=== PATIENT | male | born 1935 ===

== ENCOUNTER 2016-08-08 13:55 | Inpatient (IN) | payer MEDICARE, OTHER ==
[2016-08-08 13:55] VITALS: BMI 21.4
[2016-08-08] MEDS ORDERED: Iohexol 240 (50 ml) PO STA (15:19)
[2016-08-08] MEDS ORDERED: Iohexol 240 (50 ml) ONE (15:41)
--- NOTE | 2016-08-08 15:48 | C.PDOC ---
History Of Present Illness <Ashley Bland - Last Filed: 08/08/16 19:03> <Mickie Baldwin - Last Filed: 08/08/16 21:17> 81 year old male presents to the ED with complaints of upper abdominal pain that began yesterday. Patient denies any fever, nausea, vomiting, or diarrhea. (Ashley Bland) History Per: Patient History/Exam Limitations: no limitations Onset/Duration Of Symptoms: Hrs Current Symptoms Are (Timing): Still Present Location Of Pain/Discomfort: Periumbilical Quality Of Discomfort: "Pain" Associated Symptoms: denies: Fever, Chills, Nausea, Vomiting, Diarrhea Recent travel outside of the [place]: No <Ashley Bland - Last Filed: 08/08/16 19:03> <Mickie Baldwin - Last Filed: 08/08/16 21:17> Time Seen by Provider: 08/08/16 14:24 Chief Complaint (Nursing): Abdominal Pain Past Medical History Reviewed: Historical Data, Nursing Documentation, Vital Signs - Medical History PMH: Anxiety, Benign Prostatic Hyperplasia (removed), Bronchitis, CAD, Colonic Polyps, Diabetes, GERD, Hiatal Hernia, HTN, Hypercholesterolemia, Malignancy ( Colon), Obstructive Bowel, Peripheral Edema Surgical History: Appendectomy, CABG, Cholecystectomy, Hernia Repair Family History: States: Unknown Family Hx - Social History Hx Tobacco Use: No Hx Alcohol Use: No (pt denies) Hx Substance Use: No - Immunization History Hx Tetanus Toxoid Vaccination: Yes Hx Influenza Vaccination: Yes Hx Pneumococcal Vaccination: Yes <Ashley Bland - Last Filed: 08/08/16 19:03> Review Of Systems Constitutional: Negative for: Fever, Chills, Sweats Respiratory: Negative for: Cough, Shortness of Breath Gastrointestinal: Positive for: Abdominal Pain (upper abdomen ). Negative for: Nausea, Vomiting, Diarrhea Skin: Negative for: Rash <Ashley Bland - Last Filed: 08/08/16 19:03> Physical Exam - Physical Exam Appears: Non-toxic, No Acute Distress Skin: Warm, Dry Head: Normacephalic Eye(s): bilateral: Normal Inspection Oral Mucosa: Moist Neck: Normal ROM, Supple Chest: Symmetrical Cardiovascular: Rhythm Regular Respiratory: No Rales, No Rhonchi, No Stridor, No Wheezing Gastrointestinal/Abdominal: Soft, Tenderness (periumbilical tenderness), No Distention, No Guarding, No Rebound, Other (multiple scares from abdomenal surgeries ) Extremity: Normal ROM, No Tenderness Neurological/Psych: Oriented x3 <Ashley Bland - Last Filed: 08/08/16 19:03> ED Course And Treatment - Laboratory Results Result Diagrams: 08/08/16 15:56 08/08/16 15:56 ECG: Interpreted By Me, Viewed By Me ECG Rhythm: Sinus Rhythm (normal ) O2 Sat by Pulse Oximetry: 95 (room air ) - Radiology CXR: Interpreted by Me, Viewed By Me CXR Interpretation: No: Infiltrates <Ashley Bland - Last Filed: 08/08/16 19:03> - Laboratory Results Result Diagrams: 08/08/16 15:56 08/08/16 15:56 Pulse Ox Interpretation: Normal Progress Note: I've placed an 18 fr NG tube right nare without any difficulty. Pt tolerated the procedure well. <Mickie Baldwin - Last Filed: 08/08/16 21:17> Disposition - Disposition Disposition Time: 19:03 <Ashley Bland - Last Filed: 08/08/16 19:03> Discussed With DrBrandy: Benjy Gregorio Comment: accepted the pt on his service and took over the care at 9:05 PM Doctor Will See Patient In The: Hospital Counseled Patient/Family Regarding: Studies Performed, Diagnosis - POA Present On Arrival: None <Mickie Baldwin - Last Filed: 08/08/16 21:17> - Disposition Disposition: HOSPITALIZED Condition: FAIR - Clinical Impression Clinical Impression: Abdominal pain, SBO (small bowel obstruction) - Scribe Statement The provider has reviewed the documentation as recorded by the Scribe <Ashley Bland - Last Filed: 08/08/16 19:03> <Mickie Baldwin - Last Filed: 08/08/16 21:17> - Scribe Statement Niyah Daigle All medical record entries made by the Scribe were at my direction and personally dictated by me. I have reviewed the chart and agree that the record accurately reflects my personal performance of the history, physical exam, medical decision making, and the department course for this patient. I have also personally directed, reviewed, and agree with the discharge instructions and disposition. (Ashley Bland) Physician Patient Turnover Patient Signed Over To: Mickie Baldwin Handoff Comments: CT pending, dispo <Ashley Bland - Last Filed: 08/08/16 19:03>
--- NOTE | 2016-08-08 15:52 | RAD ---
HISTORY: abdominal pain COMPARISON: Chest x-ray performed 06/24/15 TECHNIQUE: Chest, one view. FINDINGS: LUNGS: Stable right mid lung zone scarring. No focal consolidation. Minimal scarring, left mid lung zone. Please note that chest x-ray has limited sensitivity for the detection of pulmonary masses. PLEURA: No significant pleural effusion identified. No definite pneumothorax . CARDIOVASCULAR: Heart size appears within normal limits. Atherosclerotic calcifications. OSSEOUS STRUCTURES: Osseous demineralization. Degenerative changes. VISUALIZED UPPER ABDOMEN: Unremarkable. OTHER FINDINGS: None. IMPRESSION: No significant interval change appreciated.
[2016-08-08 16:02] LABS: BASO % 0.4 % (0.0-2.0); EOS % 0.2 % (0.0-4.0); HEMATOCRIT 44.2 % (35.0-51.0); LYMPH # 0.4 K/uL (1.0-4.3); LYMPH % 4.7 % (20.0-40.0); MEAN CELL VOLUME 96.4 fL (80.0-94.0); MEAN CORPUSCULAR HEMOGLOBIN 32.1 pg (27.0-31.0); MEAN CORPUSCULAR HGB CONC 33.3 g/dL (33.0-37.0); MEAN PLATELET VOLUME 10.4 fL (7.2-11.7); MONO # 0.6 K/uL (0.0-0.8); MONO % 7.8 % (0.0-10.0); PLATELET COUNT 124 K/uL (130-400); RED CELL DISTRIBUTION WIDTH 15.1 % (11.5-14.5); WHITE BLOOD COUNT 7.6 K/uL (4.8-10.8)
[2016-08-08 16:11] LABS: CHLORIDE 103 mmol/L (98-107); POTASSIUM 5.6 mmol/L (3.6-5.2); SODIUM 136 mmol/L (132-148)
[2016-08-08 16:13] LABS: ALB/GLOB RATIO 0.9 (1.0-2.1); ALKALINE PHOSPHATASE 142 U/L (38-126); AMYLASE 57 U/L (30-110); AST/SGOT 59 U/L (17-59); BILIRUBIN,TOTAL 1.4 mg/dL (0.2-1.3); BLOOD UREA NITROGEN 12 mg/dL (9-20); CARBON DIOXIDE 25 mmol/L (22-30); GFR AFRICAN-AMERICAN > 60; TOTAL PROTEIN 5.6 g/dL (6.3-8.3)
[2016-08-08 16:14] LABS: ALT/SGPT 32 U/L (21-72); CALCIUM 7.4 mg/dl (8.6-10.4); GLUCOSE,RANDOM 91 mg/dL (75-110); INR 1.1
[2016-08-08 16:44] LABS: NEUTROPHIL 85 % (50-75); TOTAL CELLS COUNTED 100
[2016-08-08] MEDS ORDERED: Iodixanol 320 MG/ML 100 ML BOTTLE IV ONE (16:45)
[2016-08-08 16:47] LABS: LARGE PLATELETS PRESENT
[2016-08-08 17:00] LABS: RBC URINE 4 /hpf (0-3); URINE BILIRUBIN NEGATIVE (NEGATIVE); URINE BLOOD NEGATIVE (NEGATIVE); URINE COLOR Yellow (YELLOW); URINE GLUCOSE (UA) 1+ mg/dL (Normal); URINE KETONE TRACE mg/dL (NEGATIVE); URINE LEUKOCYTE ESTERASE NEG Leu/uL (Negative); URINE PROTEIN 1+ mg/dL (NEGATIVE); WBC URINE 8 /hpf (0-5)
--- NOTE | 2016-08-08 19:24 | CT ---
EXAM: CT Abdomen and Pelvis With Intravenous Contrast CLINICAL HISTORY: 81 years old, male; Pain; Abdominal pain; Generalized TECHNIQUE: Axial computed tomography images of the abdomen and pelvis with intravenous contrast. This CT exam was performed using one or more of the following dose reduction techniques: automated exposure control, adjustment of the mA and/or kV according to patient size, and/or use of iterative reconstruction technique. Coronal and sagittal reformatted images were created and reviewed. CONTRAST: 100 mL of VISIPAQUE administered intravenously. EXAM DATE/TIME: Exam ordered 08/08/2016 3:22 PM COMPARISON: CT - ABD PELVIS PO IV CON 12/10/2015 9:31:35 PM FINDINGS: Lower thorax: A thin reticular density in the right middle lobe suggests an area of scar ABDOMEN: Liver: Subcentimeter low density lesion is noted in the anterior inferior segment of the right lobe the liver. This too small to characterize fully but its small size Gallbladder and bile ducts: The gallbladder is not seen. Mild prominence of the intrahepatic ducts in the left lobe may be related to previous cholecystectomy. Pancreas: Unremarkable. No mass. No ductal dilation. Spleen: Unremarkable. No splenomegaly. Adrenals: Unremarkable. No mass. Kidneys and ureters: 2 low density lesions noted within the right kidney are unchanged in the previous examination. They have density readings of 17 and 23H consistent with simple cysts. No hydronephrosis. Stomach and bowel: Unremarkable. No obstruction. No mucosal thickening. Appendix: No findings to suggest acute appendicitis. PELVIS: Bladder: Unremarkable. No mass. Reproductive: Unremarkable as visualized. ABDOMEN and PELVIS: Intraperitoneal space: There is a there are dilated small bowel loops containing gas fluid levels noted in the right mid abdomen. The descending colon is noted in this region as well. A small free fluid surrounds the loops of bowel. As described on the previous examination, the findings are suggestive of an internal hernia. Bones/joints: No acute fracture. No dislocation. Soft tissues: There is diastases noted of the rectus abdominis muscles below the level of the umbilicus. Vasculature: There is a vascular graft noted in the left leg arising from the left common femoral artery. No abdominal aortic aneurysm. Lymph nodes: Unremarkable. No enlarged lymph nodes. Other findings: TURP defect noted. IMPRESSION: 1. High grade partial small bowel obstruction secondary to an incarcerated internal hernia. No mucosal thickening. The presence of fluid surrounding the incarcerated loops suggests mesenteric venous hypertension 2. Right renal cysts. 3. The gallbladder is absent. 4. Subcentimeter low density lesion in the right lobe of the liver unchanged from previous and too small to fully characterize.
[2016-08-08] MEDS ORDERED: Piperacillin/Tazobact 3.375 gm 100 ML IVPB STA (20:00)
[2016-08-08 20:48] LABS: VENOUS BLOOD GAS BASE EXCESS 1.9 mmol/L (0.0-2.0); VENOUS BLOOD GAS PCO2 50 mmHg (40-60); VENOUS BLOOD PH 7.36 (7.32-7.43)
--- NOTE | 2016-08-08 22:29 | CP.PCM.CON ---
History of Present Illness - History of Present Illness History of Present Illness: General Surgery Consult Re: high grade sbo due to incarcerated internal hernia HPI: 81M presents to ER C/O epigastric and RUQ abd pain that began yesterday. Denies F/C, N/V/D/C, Chest pain, SOB, Dysuria. Last BM was this morning and was normal. Pt reports Hx of obstruction that was resolved with NGT. Only complaint at this time is abd pain. Pt states he would like to avoid surgery if possible. PMH: DM, HTN, Hx BPH, HLD, Hx Colon CA, GERD, CAD PSH: Appendectomy, LLE bypass, Cholecystectomy, Colon resection, Prostate surgery SH: No tobacco, EtOH, or drug use All: NKDA Meds See JUN, on plavix Review of Systems - Review of Systems All systems: reviewed and no additional remarkable complaints except (as per HPI ) Past Patient History - Past Medical History & Family History Past Medical History?: Yes - Past Social History Smoking Status: Former Smoker - CARDIAC Hx Hypercholesterolemia: Yes Hx Hypertension: Yes Hx Peripheral Edema: Yes - PULMONARY Hx Bronchitis: Yes - NEUROLOGICAL Hx Seizures: No - HEENT Hx HEENT Problems: No - RENAL Hx Chronic Kidney Disease: No - ENDOCRINE/METABOLIC Hx Diabetes Mellitus Type 2: Yes - INTEGUMENTARY Hx Dermatological Problems: Yes Hx Cellulitis: Yes (chronic) Hx Psoriasis: No (denies) - MUSCULOSKELETAL/RHEUMATOLOGICAL Hx Musculoskeletal Disorders: No Hx Falls: No - GENITOURINARY/GYNECOLOGICAL Hx Sexually Transmitted Disorders: No - PSYCHIATRIC Hx Anxiety: Yes Hx Substance Use: No - SURGICAL HISTORY Hx Appendectomy: Yes Hx Cholecystectomy: Yes Hx Coronary Artery Bypass Graft: Yes - ANESTHESIA Hx Anesthesia: Yes Hx Anesthesia Reactions: No Hx Malignant Hyperthermia: No Meds Allergies/Adverse Reactions: Allergies Allergy/AdvReac Type Severity Reaction Status Date / Time No Known Allergies Allergy Verified 08/08/16 14:08 - Medications Medications: Current Medications Sodium Chloride (Sodium Chloride 0.9%) 1,000 mls @ 110 mls/hr IV .Q9H6M [facility] Morphine Sulfate (Morphine) 4 mg IVP Q4 PRN PRN Reason: Pain, moderate (4-7) Ondansetron HCl (Zofran Inj) 4 mg IVP Q4 PRN PRN Reason: Nausea/Vomiting Physical Exam - Constitutional Appears: Non-toxic, No Acute Distress - Head Exam Head Exam: ATRAUMATIC, NORMOCEPHALIC - Eye Exam Eye Exam: EOMI. absent: Scleral icterus - ENT Exam ENT Exam: Mucous Membranes Dry Additional comments: trachea midline - Respiratory Exam Respiratory Exam: NORMAL BREATHING PATTERN. absent: Respiratory Distress - Cardiovascular Exam Cardiovascular Exam: RRR, +S1, +S2 - GI/Abdominal Exam GI & Abdominal Exam: Guarding (mild in epigastrum), Soft, Tenderness (in epigastrum and RUQ). absent: Distended, Firm, Rigid Additional comments: well healed surgical scars - Rectal Exam Rectal Exam: Deferred - Extremities Exam Extremities exam: Positive for: pedal edema (trace). Negative for: calf tenderness Additional comments: bypass scars on L LE - Back Exam Back exam: absent: CVA tenderness (L), CVA tenderness (R) - Neurological Exam Neurological exam: Alert, Oriented x3 - Psychiatric Exam Psychiatric exam: Normal Affect, Normal Mood - Skin Skin Exam: Dry, Warm Results - Vital Signs Recent Vital Signs: Last Vital Signs Temp 98.6 F 08/08/16 14:10 Pulse 69 08/08/16 19:20 Resp 13 08/08/16 19:20 BP 125/66 08/08/16 19:20 Pulse Ox 98 08/08/16 21:26 - Labs Result Diagrams: 08/08/16 15:56 08/08/16 15:56 - Imaging and Cardiology CT scan - abdomen Status: Image reviewed by me, Report reviewed by me Assessment & Plan - Assessment and Plan (Free Text) Assessment: 81M with partial SBO 2/2 internal hernia Plan: NPO NGT Analgesia Zofran IVF Hold plavix AM labs Serial abd exams OR if pt worsens D/W Dr. Delvis Mares PGY3
[2016-08-08] MEDS ORDERED: Sodium Chloride 0.9% 1,000 ML ONE (22:35)
[2016-08-08] MEDS: Sodium Chloride 0.9% 1,000 ML IV SCH (22:36)
[2016-08-08] MEDS ORDERED: Morphine 4 MG/ML VIAL ONE (23:38)
[2016-08-08] MEDS: Morphine 4 MG/ML VIAL IVP PRN (23:41)
[2016-08-09] MEDS: Sodium Chloride 0.9% 1,000 ML IV SCH ×3 (08:00→22:48)
[2016-08-09 09:07] LABS: BASO % 0.3 % (0.0-2.0); EOS % 0.5 % (0.0-4.0); HEMATOCRIT 41.1 % (35.0-51.0); LYMPH # 0.5 K/uL (1.0-4.3); LYMPH % 6.7 % (20.0-40.0); MEAN CELL VOLUME 96.5 fL (80.0-94.0); MEAN CORPUSCULAR HEMOGLOBIN 32.2 pg (27.0-31.0); MEAN CORPUSCULAR HGB CONC 33.4 g/dL (33.0-37.0); MEAN PLATELET VOLUME 10.2 fL (7.2-11.7); MONO # 0.6 K/uL (0.0-0.8); MONO % 8.7 % (0.0-10.0); PLATELET COUNT 117 K/uL (130-400); WHITE BLOOD COUNT 7.2 K/uL (4.8-10.8)
[2016-08-09 09:30] LABS: CHLORIDE 106 mmol/L (98-107); POTASSIUM 3.8 mmol/L (3.6-5.2); SODIUM 136 mmol/L (132-148)
[2016-08-09 09:32] LABS: ALB/GLOB RATIO 0.9 (1.0-2.1); ALKALINE PHOSPHATASE 123 U/L (38-126); AST/SGOT 21 U/L (17-59); BILIRUBIN,TOTAL 0.7 mg/dL (0.2-1.3); CARBON DIOXIDE 23 mmol/L (22-30); GFR AFRICAN-AMERICAN > 60; TOTAL PROTEIN 4.4 g/dL (6.3-8.3)
[2016-08-09 09:33] LABS: ALT/SGPT 34 U/L (21-72); BLOOD UREA NITROGEN 10 mg/dL (9-20); CALCIUM 6.3 mg/dl (8.6-10.4); GLUCOSE,RANDOM 110 mg/dL (75-110)
[2016-08-09] MEDS: Morphine 4 MG/ML VIAL IVP PRN ×2 (09:36→22:48)
[2016-08-09 11:09] LABS: NEUTROPHIL 85 % (50-75); TOTAL CELLS COUNTED 100
--- NOTE | 2016-08-09 12:52 | CP.PCM.PN ---
Subjective - Date & Time of Evaluation Date of Evaluation: 08/09/16 Time of Evaluation: 12:48 - Subjective Subjective: General Surgery - Dr. Edmondson Pt S&E. NICOLE. Pt states his pain is about the same today. He is able to rest but gets intermittent episodes of discomfort. NGT in place to low intermittent suction, ~50cc out overnight, brown clear liquid. No flatus or BM yet since yesterday. No F/C, SOB/Cp. Objective - Vital Signs/Intake and Output Vital Signs (last 24 hours): Temp Pulse Resp BP Pulse Ox 98.6 F 76 20 133/63 96 08/09/16 08:24 08/09/16 08:24 08/09/16 08:24 08/09/16 08:24 08/09/16 08:24 Intake and Output: 08/09/16 08/09/16 06:59 18:59 Output Total 200 Balance -200 - Medications Medications: Current Medications Sodium Chloride (Sodium Chloride 0.9%) 1,000 mls @ 110 mls/hr IV .Q9H6M [facility] Last Admin: 08/09/16 08:00 Dose: Not Given Morphine Sulfate (Morphine) 4 mg IVP Q4 PRN PRN Reason: Pain, moderate (4-7) Last Admin: 08/09/16 09:36 Dose: 4 mg Ondansetron HCl (Zofran Inj) 4 mg IVP Q4 PRN PRN Reason: Nausea/Vomiting - Labs Labs: 08/09/16 08:55 08/09/16 08:55 PT 12.5 SECONDS (9.7-12.2) H 08/08/16 15:56 INR 1.1 08/08/16 15:56 APTT 31 SECONDS (21-34) 08/08/16 15:56 - Constitutional Appears: No Acute Distress - Head Exam Head Exam: NORMAL INSPECTION, NORMOCEPHALIC - Respiratory Exam Respiratory Exam: NORMAL BREATHING PATTERN. absent: Respiratory Distress - GI/Abdominal Exam GI & Abdominal Exam: Firm (firm area R mid abdomen), Soft, Tenderness (mild ttp over R periumbiliacl region). absent: Distended, Guarding, Rigid - Neurological Exam Neurological Exam: Alert, Oriented x3 - Psychiatric Exam Psychiatric exam: Normal Affect, Normal Mood - Skin Skin Exam: Dry, Intact Assessment and Plan - Assessment and Plan (Free Text) Assessment: 81M with partial SBO d/t adhesions and poss. internal hernia Plan: -Continue NGT decompression, low intermittent suction -Continue IVF, Pain control -CT reviewed and appears the same as prior in 11/2015 which was also treated conservatively -No surgical plans at this time -Will follow w/ you KARRI Thompson ,PGY2
[2016-08-09] MEDS: (Novolog) Insulin Aspart, Recombinant 100 u/ml 10 ml vial SC SCH ×2 (16:30→22:00)
[2016-08-10] MEDS ORDERED: Dextrose 50% SYRINGE Inj (50 ml) IV STA (06:36)
[2016-08-10] MEDS: (Novolog) Insulin Aspart, Recombinant 100 u/ml 10 ml vial SC SCH ×2 (07:50→12:13)
[2016-08-10] MEDS: Sodium Chloride 0.9% 1,000 ML IV SCH (08:04)
[2016-08-10 13:00] LABS: HEMATOCRIT 39.9 % (35.0-51.0); MEAN CELL VOLUME 96.6 fL (80.0-94.0); MEAN CORPUSCULAR HEMOGLOBIN 32.3 pg (27.0-31.0); MEAN CORPUSCULAR HGB CONC 33.4 g/dL (33.0-37.0); MEAN PLATELET VOLUME 10.3 fL (7.2-11.7); RED CELL DISTRIBUTION WIDTH 15.1 % (11.5-14.5)
[2016-08-10 13:33] LABS: CHLORIDE 106 mmol/L (98-107); POTASSIUM 3.6 mmol/L (3.6-5.2); SODIUM 136 mmol/L (132-148)
[2016-08-10 13:35] LABS: GFR AFRICAN-AMERICAN > 60
[2016-08-10 13:36] LABS: BLOOD UREA NITROGEN 11 mg/dL (9-20); CALCIUM 6.2 mg/dl (8.6-10.4); CARBON DIOXIDE 22 mmol/L (22-30); GLUCOSE,RANDOM 203 mg/dL (75-110)
--- NOTE | 2016-08-10 14:01 | CP.PCM.PN ---
Subjective - Date & Time of Evaluation Date of Evaluation: 08/10/16 Time of Evaluation: 13:58 - Subjective Subjective: Surgery: Dr. Galarza Pt seen and examined. Resting comfortably in bed. Pain controlled. No N/V. Passing flatus. No BM. Objective - Vital Signs/Intake and Output Vital Signs (last 24 hours): Temp Pulse Resp BP Pulse Ox 97.6 F 60 18 105/46 L 96 08/10/16 07:50 08/10/16 07:50 08/10/16 07:50 08/10/16 07:50 08/10/16 07:50 Intake and Output: 08/10/16 08/10/16 06:59 18:59 Output Total 320 Balance -320 - Medications Medications: Current Medications Sodium Chloride (Sodium Chloride 0.9%) 1,000 mls @ 110 mls/hr IV .Q9H6M [facility] Last Admin: 08/10/16 08:04 Dose: 110 mls/hr Insulin Aspart (Novolog) 0 unit SC ACHS [facility] PRN Reason: Protocol Last Admin: 08/10/16 12:13 Dose: 3 unit Morphine Sulfate (Morphine) 4 mg IVP Q4 PRN PRN Reason: Pain, moderate (4-7) Last Admin: 08/09/16 22:48 Dose: 4 mg Ondansetron HCl (Zofran Inj) 4 mg IVP Q4 PRN PRN Reason: Nausea/Vomiting - Labs Labs: 08/10/16 12:40 08/10/16 12:40 PT 12.5 SECONDS (9.7-12.2) H 08/08/16 15:56 INR 1.1 08/08/16 15:56 APTT 31 SECONDS (21-34) 08/08/16 15:56 - Constitutional Appears: Non-toxic, No Acute Distress - Head Exam Head Exam: ATRAUMATIC, NORMOCEPHALIC - Eye Exam Eye Exam: EOMI. absent: Scleral icterus - ENT Exam ENT Exam: Mucous Membranes Moist - Neck Exam Neck Exam: Full ROM - Respiratory Exam Respiratory Exam: absent: Accessory Muscle Use, Respiratory Distress, NORMAL BREATHING PATTERN - GI/Abdominal Exam GI & Abdominal Exam: Soft. absent: Distended, Firm, Guarding, Rigid, Tenderness , Rebound - Extremities Exam Extremities Exam: absent: Calf Tenderness, Pedal Edema - Neurological Exam Neurological Exam: Alert, Awake, Oriented x3 Assessment and Plan - Assessment and Plan (Free Text) Assessment: 81M w. SBO 2/2 internal hernia -D/C NGT -will start diet -monitor bowel fxn -serial abd exams -d/w attending Naresh PGY2
--- NOTE | 2016-08-10 15:04 | CP.PCM.PN ---
Subjective - Date & Time of Evaluation Date of Evaluation: 08/10/16 Time of Evaluation: 15:01 - Subjective Subjective: 81 Y/O MALE SEEN BY DR DIOP AND DR BEEBE TODAY, PT ADMITTED FOR ABDOMINAL PAIN, SBO, WHICH RESOLVED WITH CONSERVATIVE TX, NGT D/C, TOLERATED REGULAR DIET , PASSING FLATUS, + BM X3 TODAY, PT DENIES ANY ABD PAIN, N/V, ABD SOFT AND NON- TENDER, +BS X4, PT EDUCATED TO F/U W/DR DIOP IN THE OFFICE IN 1-2 DAYS, RETURN TO ED IF ANY WORSENING ABD PAIN, N/V OR ANY CONCERNING S/S, AGREE, VERBALIZE UNDERSTANDING. Objective - Vital Signs/Intake and Output Vital Signs (last 24 hours): Temp Pulse Resp BP Pulse Ox 97.6 F 60 18 105/46 L 96 08/10/16 07:50 08/10/16 07:50 08/10/16 07:50 08/10/16 07:50 08/10/16 07:50 Intake and Output: 08/10/16 08/10/16 06:59 18:59 Output Total 320 Balance -320 - Medications Medications: Current Medications Sodium Chloride (Sodium Chloride 0.9%) 1,000 mls @ 110 mls/hr IV .Q9H6M [facility] Last Admin: 08/10/16 08:04 Dose: 110 mls/hr Insulin Aspart (Novolog) 0 unit SC ACHS [facility] PRN Reason: Protocol Last Admin: 08/10/16 12:13 Dose: 3 unit Morphine Sulfate (Morphine) 4 mg IVP Q4 PRN PRN Reason: Pain, moderate (4-7) Last Admin: 08/09/16 22:48 Dose: 4 mg Ondansetron HCl (Zofran Inj) 4 mg IVP Q4 PRN PRN Reason: Nausea/Vomiting - Labs Labs: 08/10/16 12:40 08/10/16 12:40 PT 12.5 SECONDS (9.7-12.2) H 08/08/16 15:56 INR 1.1 08/08/16 15:56 APTT 31 SECONDS (21-34) 08/08/16 15:56
[2016-08-10 15:34] VITALS: BP 111/55; PULSE 64; RESP 20; TEMP 98.3; O2SAT 97
--- NOTE | 2016-08-10 15:46 | CARD ---
APPROVED REPORT EKG Measurement Heart [id number] <Conclusion> Normal sinus rhythm Left axis deviation Right bundle branch block Abnormal ECG
--- NOTE | 2016-08-10 22:11 | HP ---
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 The patient had a nasogastric tube placed, and surgical consultation. Subsequently, the patient was admitted for further management. REVIEW OF SYSTEMS: Other review of systems is negative. ALLERGIES: No known allergy. HOME MEDICATIONS: Crestor 10 mg daily, Protonix 20 mg daily, Cozaar 25 mg daily , Plavix 75 mg daily, Pletal 50 mg twice a day, aspirin 81 mg daily. PAST MEDICAL HISTORY: Peripheral vascular disease, type 2 diabetes mellitus. SOCIAL HISTORY: No history of smoking, ETOH, or substance abuse. FAMILY HISTORY: Noncontributory. PHYSICAL EXAMINATION: GENERAL: The patient was in bed, comfortable, not in any cardiopulmonary distress. VITAL SIGNS: Blood pressure 130/80, temperature 98.2, respiratory rate 18, pulse 70. HEENT: Pupils equal, reactive to light. Normal-appearing mucosa of the conjunctivae, oropharyngeal, and nasal membrane mucosa. NECK: Supple, no JVD, no carotid bruit, no lymph node, no thyromegaly. CHEST AND LUNGS: Bilateral symmetrical expansion, good air exchange, no rales, no rhonchi. CARDIOVASCULAR: PMI not localized. S1, S2. No additional sounds. ABDOMEN: Normoactive bowel sounds, no tenderness, no organomegaly, no masses. EXTREMITIES: No cyanosis, no clubbing, no edema. CENTRAL NERVOUS SYSTEM: Alert, awake, oriented x 3. No neurological deficits could be appreciated. ASSESSMENT: Small-bowel obstruction, type 2 diabetes mellitus, peripheral vascular disease. PLAN: Follow surgical recommendations. Continue IV hydration. Review Accu- Cheks with insulin coverage as needed. Benjy Gregorio MD cc: [id number] TT: 08/10/2016 22:10:48 tn MTDD
--- NOTE | 2016-08-10 22:38 | DS ---
REASON FOR ADMISSION: This is an 81-year-old male with history of multiple medical problems who was admitted for small-bowel obstruction. COURSE OF HOSPITALIZATION: The patient was admitted to medical floor and he had a surgical consultat ion done by Dr. Galarza. The patient had a nasogastric tube placed and IV fluid hydration. The pat ient's symptoms completely resolved and nasogastric tube was removed and patient was started on liqui d diet. The patient tolerated liquid diet very well and diet was advanced and cleared by surgery. T he patient was discharged home in a stable condition to continue his preadmission medications. FINAL DIAGNOSES: Small-bowel obstruction, type 2 diabetes mellitus, peripheral vascular disease. Benjy Gregorio MD cc: [id number] TT: 08/10/2016 22:38:10 [place]
== END 2016-08-10 17:30 | disposition home or self-care (01) | DRG 395 ==
LOC: C.ER 13:55 → C.9E 21:06 → C.6T 21:06
PROVIDERS: ADMIT Internal Medicine; ATTEND Internal Medicine
PROC: 0D9670Z Drainage of Stomach with Drainage Device, Via Natural or Artificial Opening (ICD-10-PCS; principal; 2016-08-08)
DX: K43.6 Other and unspecified ventral hernia with obstruction, without gangrene (principal); E11.51 Type 2 diabetes mellitus with diabetic peripheral angiopathy without gangrene; Z95.1 Presence of aortocoronary bypass graft; I25.10 Atherosclerotic heart disease of native coronary artery without angina pectoris; K21.9 Gastro-esophageal reflux disease without esophagitis; I10 Essential (primary) hypertension; E78.5 Hyperlipidemia, unspecified; N40.0 Benign prostatic hyperplasia without lower urinary tract symptoms; F41.9 Anxiety disorder, unspecified; E78.00 Pure hypercholesterolemia, unspecified; Z90.49 Acquired absence of other specified parts of digestive tract; Z79.84 Long term (current) use of oral hypoglycemic drugs; Z85.038 Personal history of other malignant neoplasm of large intestine; Z87.891 Personal history of nicotine dependence

== ENCOUNTER 2016-11-03 11:38 | Inpatient (IN) | payer MEDICARE ==
[2016-11-03 11:38] VITALS: BMI 21.4
[2016-11-03] MEDS ORDERED: Sodium Chloride 0.9% 500 ML IV ONE ×2 (12:35→12:58)
--- NOTE | 2016-11-03 12:40 | C.PDOC ---
History Of Present Illness 81 y/o male, with past medical hx of SBO, presents to ED with c/o periumbilical pain. Patient also reports some nausea. He states that his bowel movements have been normal. Otherwise, denies vomiting, frequency, hematuria, or dysuria. Patient states pain was worse when he had SBO, but due to history, he came to the hospital today. Time Seen by Provider: 11/03/16 12:07 Chief Complaint (Nursing): Abdominal Pain History Per: Patient History/Exam Limitations: no limitations Onset/Duration Of Symptoms: Days Current Symptoms Are (Timing): Still Present Location Of Pain/Discomfort: Periumbilical Radiation Of Pain To:: None Quality Of Discomfort: "Pain" Associated Symptoms: Nausea. denies: Fever, Chills, Vomiting, Diarrhea, Back Pain, Chest Pain, Constipation, Urinary Symptoms Recent travel outside of the [place]: No Past Medical History Reviewed: Historical Data, Nursing Documentation, Vital Signs Vital Signs: Last Vital Signs Temp 98.7 F 11/03/16 17:10 Pulse 76 11/03/16 17:10 Resp 18 11/03/16 17:10 BP 144/72 11/03/16 17:10 Pulse Ox 98 11/03/16 17:23 - Medical History PMH: Anxiety, Benign Prostatic Hyperplasia (removed), Bronchitis, CAD, Colonic Polyps, Diabetes, Gastritis, Gall Bladder Disease, GERD, Hiatal Hernia, HTN, Hypercholesterolemia, Malignancy (Colon), Obstructive Bowel, Pancreatitis, Peripheral Edema Surgical History: Appendectomy, CABG, Cholecystectomy, Hernia Repair - [facility] Procedures ANGIOPLASTY OR ATHERECTOMY OF OTHER NON-CORONARY VESSEL(S) (04/15/06) CLOSED ENDOSCOPIC BIOPSY OF LARGE INTESTINE (01/24/14) CONTRAST AORTOGRAM (04/15/06) CONTRAST ARTERIOGRAM-LEG (04/15/06) CYSTOSCOPY NEC (11/27/14) DRAINAGE OF STOMACH WITH DRAINAGE DEVICE, VIA OPENING (08/08/16) DX ULTRASOUND NEC (11/27/14) INSERT GASTRIC TUBE NEC (12/29/14) INSERT INDWELLING CATH (07/14/14) OTH LYSIS-PERITONEAL ADHES (08/15/12) OTHER HERNIA REPAIR (08/01/14) PACKING OF NASAL REGION USING PACKING MATERIAL (04/12/15) PERCUTAN NEEDLE BIOPSY OF PROSTATE (11/27/14) REMOV URIN DRAINAGE NEC (03/04/14) REPLACE INDWELLING CATH (07/19/14) SUPRAPUBIC PROSTATECTOMY (12/18/14) Family History: States: Unknown Family Hx - Social History Hx Tobacco Use: No Hx Alcohol Use: Yes Hx Substance Use: No - Immunization History Hx Tetanus Toxoid Vaccination: Yes Hx Influenza Vaccination: Yes Hx Pneumococcal Vaccination: Yes Review Of Systems Except As Marked, All Systems Reviewed And Found Negative. Constitutional: Negative for: Fever, Chills Cardiovascular: Negative for: Chest Pain, Palpitations Respiratory: Negative for: Cough, Shortness of Breath, Wheezing Gastrointestinal: Positive for: Nausea, Abdominal Pain. Negative for: Vomiting , Diarrhea, Constipation Genitourinary: Negative for: Dysuria Skin: Negative for: Rash Neurological: Negative for: Headache, Dizziness Physical Exam - Physical Exam Appears: Non-toxic, No Acute Distress Skin: Normal Color, Warm, Dry Head: Atraumatic, Normacephalic Oral Mucosa: Moist Chest: Symmetrical Cardiovascular: Rhythm Regular Respiratory: Normal Breath Sounds, No Rales, No Rhonchi, No Wheezing Gastrointestinal/Abdominal: Soft, Tenderness (RLQ), Other (healed surgical incision scars) Back: Normal Inspection Extremity: Normal ROM, Capillary Refill (< 2 sec.) Extremity: Bilateral: Normal Color And Temperature Neurological/Psych: Oriented x3, Normal Speech, Normal Cognition ED Course And Treatment - Laboratory Results Result Diagrams: 11/03/16 12:58 11/03/16 12:58 O2 Sat by Pulse Oximetry: 98 (ra) Pulse Ox Interpretation: Normal Medical Decision Making Medical Decision Making: Plan: * Zofran, morphine, IVFs, labs. * Reassess Progress: EKG shows NSR at 70bpm with LAD and RBBB. CT shows "FINDINGS: LOWER THORAX: Small left pleural effusion and associated consolidation. No visible pneumothorax. Small to moderate pericardial effusion. LIVER: Hypoattenuation of the liver compatible with hepatic steatosis. Scattered tiny too small to characterize hepatic hypodensities ; statistically likely cysts or hemangiomas. GALLBLADDER AND BILE DUCTS: Gallbladder is absent, presumably due to cholecystectomy. Surgical clips are not evident. Mild intrahepatic biliary ductal dilatation. PANCREAS: Unremarkable. SPLEEN: Unremarkable. ADRENALS: Unremarkable. KIDNEYS AND URETERS: The kidneys enhance symmetrically. No hydronephrosis or obstructing renal calculus. 2 low density lesions noted within the right kidney, similar prior study and likely cysts. BLADDER: The urinary bladder appears unremarkable. REPRODUCTIVE: Evidence of TURP defect. APPENDIX: The appendix is not identified, possibly surgically removed. No secondary signs to suggest acute appendicitis. BOWEL: The stomach is nondistended. Appearance suggests partial right hemicolectomy. Dilated small bowel loops re-identified within the right abdomen along with fecalization of small bowel contents. Appearance remains suggestive of an internal hernia. Dilated small bowel loops. Evidence of small bowel obstruction with suspected transition point involving the lateral-most fecalized bowel loop within the internal hernia sac. PERITONEUM: No significant free fluid. No definite free air. LYMPH NODES: No bulky lymphadenopathy identified. VASCULATURE: Dense atherosclerotic calcifications. No aortic aneurysm. BONES: There is decreased mineralization of the bones, most likely representing osteoporosis. Rarely, underlying metabolic bone disease or infiltrative lesions can also have this appearance. Degenerative changes. Mild scoliosis convex the left. OTHER FINDINGS: Small fat and fluid left inguinal hernia. Small fat containing right inguinal hernia. Rectus diastases. 5:19PM Spoke to PMD Dr. Gregorio. Patient made NPO and will transfer to [facility]/sx. Requesting Dr. Sellers for gen surgery. Spoke to salesperson surgical appliances. Disposition - Disposition Disposition: HOSPITALIZED Disposition Time: 17:32 Condition: FAIR - Clinical Impression Clinical Impression: SBO (small bowel obstruction) - Scribe Statement The provider has reviewed the documentation as recorded by the Mirela Marcus Provider Attestation: All medical record entries made by the Mirela were at my direction and personally dictated by me. I have reviewed the chart and agree that the record accurately reflects my personal performance of the history, physical exam, medical decision making, and the department course for this patient. I have also personally directed, reviewed, and agree with the discharge instructions and disposition.
[2016-11-03] MEDS ORDERED: Morphine 4 MG/ML VIAL ONE (12:57)
[2016-11-03 13:05] LABS: BASO % 0.3 % (0.0-2.0); EOS % 0.2 % (0.0-4.0); HEMATOCRIT 42.5 % (35.0-51.0); LYMPH # 0.2 K/uL (1.0-4.3); LYMPH % 2.5 % (20.0-40.0); MEAN CELL VOLUME 95.9 fL (80.0-94.0); MEAN CORPUSCULAR HEMOGLOBIN 32.8 pg (27.0-31.0); MEAN CORPUSCULAR HGB CONC 34.3 g/dL (33.0-37.0); MEAN PLATELET VOLUME 8.4 fL (7.2-11.7); MONO # 0.3 K/uL (0.0-0.8); MONO % 4.2 % (0.0-10.0); RED CELL DISTRIBUTION WIDTH 14.3 % (11.5-14.5)
[2016-11-03 13:07] LABS: PLATELET COUNT 217 K/uL (130-400); WHITE BLOOD COUNT 7.7 K/uL (4.8-10.8)
[2016-11-03 13:13] LABS: CHLORIDE 95 mmol/L (98-107); INR 1.2
[2016-11-03 13:14] LABS: POTASSIUM 4.7 mmol/L (3.6-5.2); SODIUM 131 mmol/L (132-148)
[2016-11-03 13:16] LABS: BILIRUBIN,TOTAL 0.7 mg/dL (0.2-1.3); CARBON DIOXIDE 27 mmol/L (22-30); GFR AFRICAN-AMERICAN > 60
[2016-11-03 13:17] LABS: ALB/GLOB RATIO 0.8 (1.0-2.1); ALKALINE PHOSPHATASE 209 U/L (38-126); ALT/SGPT 88 U/L (21-72); AST/SGOT 49 U/L (17-59); BLOOD UREA NITROGEN 10 mg/dL (9-20); CALCIUM 7.6 mg/dl (8.6-10.4); GLUCOSE,RANDOM 189 mg/dL (75-110); TOTAL PROTEIN 5.3 g/dL (6.3-8.3)
[2016-11-03 13:26] LABS: NEUTROPHIL 87 % (50-75); REACTIVE LYMPHOCYTES 1 % (0-0); TOTAL CELLS COUNTED 100
[2016-11-03] MEDS ORDERED: Iohexol 240 (50 ml) ONE (14:14)
[2016-11-03 14:58] LABS: RBC URINE 1 /hpf (0-3); URINE BILIRUBIN NEGATIVE (NEGATIVE); URINE BLOOD NEGATIVE (NEGATIVE); URINE COLOR Yellow (YELLOW); URINE GLUCOSE (UA) NORMAL (Normal); URINE KETONE NEGATIVE (NEGATIVE); URINE LEUKOCYTE ESTERASE NEG Leu/uL (Negative); URINE PROTEIN NEGATIVE (NEGATIVE)
[2016-11-03 14:59] LABS: WBC URINE 1 /hpf (0-5)
[2016-11-03] MEDS ORDERED: Iodixanol 320 MG/ML 100 ML BOTTLE IV ONE (15:30)
--- NOTE | 2016-11-03 17:08 | CT ---
PROCEDURE: CT Abdomen and Pelvis with oral and IV contrast. HISTORY: abdominal pain COMPARISON: None available TECHNIQUE: Contiguous axial images of the abdomen and pelvis. Oral and IV contrast was administered. Coronal and Sagittal reformats generated and reviewed. Contrast dose: 100 cc Visipaque 320 Radiation dose: Total exam DLP = 352.23 mGy-cm. This CT exam was performed using one or more of the following dose reduction techniques: Automated exposure control, adjustment of the mA and/or kV according to patient size, and/or use of iterative reconstruction technique. FINDINGS: LOWER THORAX: Small left pleural effusion and associated consolidation. No visible pneumothorax. Small to moderate pericardial effusion. LIVER: Hypoattenuation of the liver compatible with hepatic steatosis. Scattered tiny too small to characterize hepatic hypodensities ; statistically likely cysts or hemangiomas. GALLBLADDER AND BILE DUCTS: Gallbladder is absent, presumably due to cholecystectomy. Surgical clips are not evident. Mild intrahepatic biliary ductal dilatation. PANCREAS: Unremarkable. SPLEEN: Unremarkable. ADRENALS: Unremarkable. KIDNEYS AND URETERS: The kidneys enhance symmetrically. No hydronephrosis or obstructing renal calculus. 2 low density lesions noted within the right kidney, similar prior study and likely cysts. BLADDER: The urinary bladder appears unremarkable. REPRODUCTIVE: Evidence of TURP defect. APPENDIX: The appendix is not identified, possibly surgically removed. No secondary signs to suggest acute appendicitis. BOWEL: The stomach is nondistended. Appearance suggests partial right hemicolectomy. Dilated small bowel loops re-identified within the right abdomen along with fecalization of small bowel contents. Appearance remains suggestive of an internal hernia. Dilated small bowel loops. Evidence of small bowel obstruction with suspected transition point involving the lateral-most fecalized bowel loop within the internal hernia sac. PERITONEUM: No significant free fluid. No definite free air. LYMPH NODES: No bulky lymphadenopathy identified. VASCULATURE: Dense atherosclerotic calcifications. No aortic aneurysm. BONES: There is decreased mineralization of the bones, most likely representing osteoporosis. Rarely, underlying metabolic bone disease or infiltrative lesions can also have this appearance. Degenerative changes. Mild scoliosis convex the left. OTHER FINDINGS: Small fat and fluid left inguinal hernia. Small fat containing right inguinal hernia. Rectus diastases. IMPRESSION: Evidence of an internal hernia with small bowel obstruction as above. Correlate clinically. Hepatic steatosis. Too small to characterize hepatic hypodensities. Small left pleural effusion associated consolidation. Small to moderate pericardial effusion. Mild intrahepatic biliary ductal dilatation. The gallbladder is not identified, presumably due to cholecystectomy. Two probable right renal cysts. Evidence of TURP defect. Correlate clinically. Small fat and fluid left inguinal hernia. Small fat containing right inguinal hernia. There is decreased mineralization of the bones, most likely representing osteoporosis. Rarely, underlying metabolic bone disease or infiltrative lesions can also have this appearance. Additional findings as above.
[2016-11-03] MEDS ORDERED: Morphine 4 MG/ML VIAL IVP PRN ×2 (18:12)
--- NOTE | 2016-11-03 18:17 | CP.PCM.CON ---
History of Present Illness - History of Present Illness History of Present Illness: General surgery consult note for Dr. Cleveland Wallace, PGY-1 Pt S & E at bedside. 81yo Occitan speaking M w/PMH sig for recurrent SBO consulted for RLQ abdominal pain x 2 days. Pain is constant, non radiating, "strong", in RLQ and periumbilical. Admits to nausea, bloating, bleching. Last BM was yesterday morning. Pt reports similar episodes of obstruction with ingestion of solid foods, which he reports having 2 days ago. States that he has had relief of previous obstructive episodes with enemas. Denies emesis, fevers, chills, chest pain, urinary complaints, recent illness, other complaints. In ED, CT of abdomen w/findings of nondistended stomach, Dilated small bowel loops re-identified within the right abdomen along with fecalization of small bowel contents. Appearance remains suggestive of an internal hernia. Evidence of small bowel obstruction with suspected transition point involving the lateral -most fecalized bowel loop within the internal hernia sac. No leukocytosis. VSS. PMH: recurrrent SBO, PVD, DM, CAD, gastritis, GERD, HLD, HTN, hx colon CA, hiatal hernia PSH: prostate surgery, cholecystectomy, appendectomy, colectomy, ex-lap w/ repair of internal hernia and enterotomy, hernia repair with mesh, CABG All: NKA SH: Denies ETOH, tobacco, or illicit drug use Review of Systems - Review of Systems All systems: reviewed and no additional remarkable complaints except - Constitutional Constitutional: absent: Chills, Fever - EENT Eyes: absent: Change in Vision Nose/Mouth/Throat: absent: Sore Throat - Cardiovascular Cardiovascular: absent: Chest Pain - Gastrointestinal Gastrointestinal: Abdominal Pain, Belching, Bloating, Change in Bowel Habits, Nausea. absent: Diarrhea, Vomiting - Genitourinary Genitourinary: absent: Change in Urinary Stream, Dysuria, Urinary Frequency - Musculoskeletal Musculoskeletal: absent: Numbness, Tingling - Neurological Neurological: absent: Headaches Past Patient History - Infectious Disease Hx of Infectious Diseases: None - Past Medical History & Family History Past Medical History?: Yes - Past Social History Smoking Status: Former Smoker - CARDIAC Hx Hypercholesterolemia: Yes Hx Hypertension: Yes Hx Peripheral Edema: Yes - PULMONARY Hx Bronchitis: Yes - NEUROLOGICAL Hx Neurological Disorder: No Hx Seizures: No - HEENT Hx HEENT Problems: No - RENAL Hx Chronic Kidney Disease: No - ENDOCRINE/METABOLIC Hx Diabetes Mellitus Type 2: Yes - INTEGUMENTARY Hx Dermatological Problems: Yes Hx Cellulitis: Yes (chronic) Hx Psoriasis: No (denies) - MUSCULOSKELETAL/RHEUMATOLOGICAL Hx Musculoskeletal Disorders: No Hx Falls: No - GASTROINTESTINAL Hx Gall Bladder Disease: Yes Hx Gastritis: Yes Hx Pancreatitis: Yes - GENITOURINARY/GYNECOLOGICAL Hx Genitourinary Disorders: No Hx Sexually Transmitted Disorders: No - PSYCHIATRIC Hx Anxiety: Yes Hx Substance Use: No - SURGICAL HISTORY Hx Appendectomy: Yes Hx Cholecystectomy: Yes Hx Coronary Artery Bypass Graft: Yes - ANESTHESIA Hx Anesthesia: Yes Hx Anesthesia Reactions: No Hx Malignant Hyperthermia: No Meds Allergies/Adverse Reactions: Allergies Allergy/AdvReac Type Severity Reaction Status Date / Time No Known Allergies Allergy Verified 11/03/16 11:40 - Medications Medications: Current Medications Lactated Ringer's (Lactated Ringer's) 1,000 mls @ 100 mls/hr IV .Q10H [facility] Morphine Sulfate (Morphine) 4 mg IVP Q6 PRN PRN Reason: Pain, severe (8-10) Morphine Sulfate (Morphine) 2 mg IVP Q6H PRN PRN Reason: Pain, moderate (4-7) Physical Exam - Constitutional Appears: Non-toxic, No Acute Distress - Head Exam Head Exam: ATRAUMATIC, NORMAL INSPECTION, NORMOCEPHALIC - Eye Exam Eye Exam: EOMI, Normal appearance - ENT Exam ENT Exam: Mucous Membranes Moist, Normal Exam - Neck Exam Neck exam: Positive for: Full Rom - Respiratory Exam Respiratory Exam: Clear to Auscultation Bilateral - Cardiovascular Exam Cardiovascular Exam: REGULAR RHYTHM, +S1, +S2 - GI/Abdominal Exam GI & Abdominal Exam: Distended (mildly), Guarding (RLQ), Hyperactive Bowel Sounds, Soft, Tenderness (RLQ and periumbilica). absent: Firm Additional comments: Well healed midline incision - Rectal Exam Rectal Exam: NORMAL INSPECTION - Extremities Exam Extremities exam: Positive for: full ROM, normal inspection. Negative for: pedal edema - Back Exam Back exam: NORMAL INSPECTION - Neurological Exam Neurological exam: Alert, CN II-XII Intact, Oriented x3 - Psychiatric Exam Psychiatric exam: Normal Affect, Normal Mood - Skin Skin Exam: Dry, Intact, Normal Color, Warm Additional comments: Left leg with linear well healed scar Results - Vital Signs Recent Vital Signs: Last Vital Signs Temp 98.7 F 11/03/16 17:10 Pulse 76 11/03/16 17:10 Resp 18 11/03/16 17:10 BP 144/72 11/03/16 17:10 Pulse Ox 98 11/03/16 17:47 - Labs Result Diagrams: 11/03/16 12:58 11/03/16 12:58 Assessment & Plan - Assessment and Plan (Free Text) Assessment: 81M w/recurrent SBO currently with SBO Plan: NPO Enemas IVF Pain regimen Anti-emetics Ambulate Will insert NGT if pt becomes more distended KARRI attending [place], PGY-1 - Date & Time Date: 11/03/16 Time: 18:18
[2016-11-03] MEDS: Lactated Ringer's 1,000 ML IV SCH (18:30)
[2016-11-04] MEDS: Lactated Ringer's 1,000 ML IV SCH ×2 (04:15→14:36)
--- NOTE | 2016-11-04 08:25 | CP.PCM.PN ---
Subjective - Date & Time of Evaluation Date of Evaluation: 11/04/16 Time of Evaluation: 08:22 - Subjective Subjective: Surgery: Dr. Dash Patient reports pain has improved but still complains of nausea. Denies vomiting , f/c. Denies bowel movement. Has received 2 enemas. Objective - Vital Signs/Intake and Output Vital Signs (last 24 hours): Temp Pulse Resp BP Pulse Ox 97.5 F L 76 18 147/74 96 11/04/16 07:10 11/04/16 07:10 11/04/16 07:10 11/04/16 07:10 11/04/16 07:10 Intake and Output: 11/04/16 11/04/16 06:59 18:59 Intake Total 800 Balance 800 - Medications Medications: Current Medications Famotidine (Pepcid) 20 mg IVP DAILY [facility] Lactated Ringer's (Lactated Ringer's) 1,000 mls @ 100 mls/hr IV .Q10H [facility] Last Admin: 11/04/16 04:15 Dose: 100 mls/hr Morphine Sulfate (Morphine) 4 mg IVP Q6 PRN PRN Reason: Pain, severe (8-10) Last Admin: 11/03/16 22:50 Dose: 4 mg Morphine Sulfate (Morphine) 2 mg IVP Q6H PRN PRN Reason: Pain, moderate (4-7) Ondansetron HCl (Zofran Inj) 4 mg IVP Q6H PRN PRN Reason: Nausea/Vomiting - Labs Labs: PT 14.0 SECONDS (9.7-12.2) H 11/03/16 12:58 INR 1.2 11/03/16 12:58 APTT 27 SECONDS (21-34) 11/03/16 12:58 - Constitutional Appears: Non-toxic, No Acute Distress, Chronically Ill - Head Exam Head Exam: ATRAUMATIC, NORMOCEPHALIC - Eye Exam Eye Exam: EOMI, Normal appearance - ENT Exam ENT Exam: Mucous Membranes Moist - Respiratory Exam Respiratory Exam: NORMAL BREATHING PATTERN. absent: Respiratory Distress - Cardiovascular Exam Cardiovascular Exam: REGULAR RHYTHM. absent: Tachycardia - GI/Abdominal Exam GI & Abdominal Exam: Soft. 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 Jalen Paulino PGY3
[2016-11-04] MEDS: (Novolin R) Insulin Human Regular 100 units/ml vial SC SCH ×3 (12:00→21:48)
[2016-11-04 13:49] LABS: HEMATOCRIT 41.6 % (35.0-51.0); MEAN CELL VOLUME 95.5 fL (80.0-94.0); MEAN CORPUSCULAR HEMOGLOBIN 32.3 pg (27.0-31.0); MEAN CORPUSCULAR HGB CONC 33.9 g/dL (33.0-37.0); MEAN PLATELET VOLUME 8.5 fL (7.2-11.7); RED CELL DISTRIBUTION WIDTH 14.7 % (11.5-14.5); WHITE BLOOD COUNT 4.5 K/uL (4.8-10.8)
[2016-11-04 13:57] LABS: CHLORIDE 96 mmol/L (98-107)
[2016-11-04 13:58] LABS: SODIUM 133 mmol/L (132-148)
[2016-11-04 13:59] LABS: POTASSIUM 4.1 mmol/L (3.6-5.2)
[2016-11-04 14:01] LABS: ALB/GLOB RATIO 0.8 (1.0-2.1); ALKALINE PHOSPHATASE 173 U/L (38-126); ALT/SGPT 64 U/L (21-72); AST/SGOT 25 U/L (17-59); BILIRUBIN,TOTAL 0.5 mg/dL (0.2-1.3); BLOOD UREA NITROGEN 11 mg/dL (9-20); CARBON DIOXIDE 29 mmol/L (22-30); GFR AFRICAN-AMERICAN > 60; GLUCOSE,RANDOM 93 mg/dL (75-110); TOTAL PROTEIN 4.6 g/dL (6.3-8.3)
[2016-11-04 14:02] LABS: CALCIUM 7.3 mg/dl (8.6-10.4); MAGNESIUM 1.7 mg/dL (1.6-2.3)
[2016-11-05] MEDS: Lactated Ringer's 1,000 ML IV SCH ×2 (02:00→10:15)
[2016-11-05] MEDS: (Novolin R) Insulin Human Regular 100 units/ml vial SC SCH ×2 (07:52→12:45)
[2016-11-05 07:57] LABS: BASO % 0.7 % (0.0-2.0); EOS # 0.1 K/uL (0.0-0.7); HEMATOCRIT 41.4 % (35.0-51.0); LYMPH # 0.3 K/uL (1.0-4.3); LYMPH % 9.1 % (20.0-40.0); MEAN CELL VOLUME 96.5 fL (80.0-94.0); MEAN CORPUSCULAR HEMOGLOBIN 32.4 pg (27.0-31.0); MEAN CORPUSCULAR HGB CONC 33.6 g/dL (33.0-37.0); MEAN PLATELET VOLUME 8.4 fL (7.2-11.7); MONO # 0.4 K/uL (0.0-0.8); MONO % 11.8 % (0.0-10.0); NRBC % 0.1 % (0.0-2.0); PLATELET COUNT 205 K/uL (130-400); RED CELL DISTRIBUTION WIDTH 14.9 % (11.5-14.5); WHITE BLOOD COUNT 3.1 K/uL (4.8-10.8)
[2016-11-05 08:09] LABS: CHLORIDE 100 mmol/L (98-107); POTASSIUM 3.8 mmol/L (3.6-5.2); SODIUM 136 mmol/L (132-148)
[2016-11-05 08:11] LABS: BILIRUBIN,TOTAL 0.4 mg/dL (0.2-1.3); GFR AFRICAN-AMERICAN > 60
[2016-11-05 08:12] LABS: ALB/GLOB RATIO 0.9 (1.0-2.1); ALKALINE PHOSPHATASE 146 U/L (38-126); ALT/SGPT 57 U/L (21-72); AST/SGOT 17 U/L (17-59); BLOOD UREA NITROGEN 7 mg/dL (9-20); CARBON DIOXIDE 26 mmol/L (22-30); GLUCOSE,RANDOM 70 mg/dL (75-110); TOTAL PROTEIN 4.1 g/dL (6.3-8.3)
[2016-11-05 08:13] LABS: CALCIUM 6.6 mg/dl (8.6-10.4)
[2016-11-05 08:37] LABS: BASOPHIL 1 % (0-2); EOSINOPHIL 1 % (0-4); NEUTROPHIL 84 % (50-75); TOTAL CELLS COUNTED 100
[2016-11-05 08:42] VITALS: BP 140/68; PULSE 57; RESP 18; TEMP 97.5; O2SAT 97
--- NOTE | 2016-11-05 11:46 | CP.PCM.PN ---
Subjective - Date & Time of Evaluation Date of Evaluation: 11/05/16 Time of Evaluation: 09:15 - Subjective Subjective: Surgery: Dr. Dash Patient seen and examined. Patient has no complaints, tolerating diet. Passing flatus, reported having 3 BMs. Objective - Vital Signs/Intake and Output Vital Signs (last 24 hours): Temp Pulse Resp BP Pulse Ox 97.5 F L 57 L 18 140/68 97 11/05/16 08:41 11/05/16 08:41 11/05/16 08:41 11/05/16 08:41 11/05/16 08:41 Intake and Output: 11/05/16 11/05/16 06:59 18:59 Intake Total 760 Balance 760 - Medications Medications: Current Medications Famotidine (Pepcid) 20 mg IVP DAILY [facility] Last Admin: 11/05/16 09:20 Dose: 20 mg Heparin Sodium (Porcine) (Heparin) 5,000 units SC Q12 [facility] Last Admin: 11/05/16 09:20 Dose: 5,000 units Lactated Ringer's (Lactated Ringer's) 1,000 mls @ 100 mls/hr IV .Q10H [facility] Last Admin: 11/05/16 10:15 Dose: Not Given Insulin Human Regular (Novolin R) 0 unit SC ACHS [facility] PRN Reason: Protocol Last Admin: 11/05/16 07:52 Dose: Not Given Morphine Sulfate (Morphine) 4 mg IVP Q6 PRN PRN Reason: Pain, severe (8-10) Last Admin: 11/03/16 22:50 Dose: 4 mg Morphine Sulfate (Morphine) 2 mg IVP Q6H PRN PRN Reason: Pain, moderate (4-7) Ondansetron HCl (Zofran Inj) 4 mg IVP Q6H PRN PRN Reason: Nausea/Vomiting - Labs Labs: 11/05/16 07:50 11/05/16 07:50 PT 14.0 SECONDS (9.7-12.2) H 11/03/16 12:58 INR 1.2 11/03/16 12:58 APTT 27 SECONDS (21-34) 11/03/16 12:58 - Constitutional Appears: Well, No Acute Distress - Eye Exam Eye Exam: Normal appearance - ENT Exam ENT Exam: Mucous Membranes Moist - Respiratory Exam Respiratory Exam: NORMAL BREATHING PATTERN - Cardiovascular Exam Cardiovascular Exam: +S1, +S2 - GI/Abdominal Exam GI & Abdominal Exam: Soft - Neurological Exam Neurological Exam: Alert, Awake, Oriented x3 - Psychiatric Exam Psychiatric exam: Normal Mood - Skin Skin Exam: Dry, Intact Assessment and Plan - Assessment and Plan (Free Text) Assessment: 81 y/o male w/ 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 Thank you. Rony Rice PGY-2 -further recs per Dr. Dash
--- NOTE | 2016-11-05 17:30 | CP.PCM.PN ---
Subjective - Date & Time of Evaluation Date of Evaluation: 11/05/16 Time of Evaluation: 11:00 - Subjective Subjective: Alert , awake. no distress. Objective - Vital Signs/Intake and Output Vital Signs (last 24 hours): Temp Pulse Resp BP Pulse Ox 97.5 F L 57 L 18 140/68 97 11/05/16 08:41 11/05/16 08:41 11/05/16 08:41 11/05/16 08:41 11/05/16 08:41 Intake and Output: 11/05/16 11/05/16 06:59 18:59 Intake Total 760 1100 Balance 760 1100 - Medications Medications: Current Medications Famotidine (Pepcid) 20 mg IVP DAILY [facility] Last Admin: 11/05/16 09:20 Dose: 20 mg Heparin Sodium (Porcine) (Heparin) 5,000 units SC Q12 [facility] Last Admin: 11/05/16 09:20 Dose: 5,000 units Lactated Ringer's (Lactated Ringer's) 1,000 mls @ 100 mls/hr IV .Q10H [facility] Last Admin: 11/05/16 10:15 Dose: Not Given Insulin Human Regular (Novolin R) 0 unit SC ACHS [facility] PRN Reason: Protocol Last Admin: 11/05/16 12:45 Dose: 3 unit Morphine Sulfate (Morphine) 4 mg IVP Q6 PRN PRN Reason: Pain, severe (8-10) Last Admin: 11/03/16 22:50 Dose: 4 mg Morphine Sulfate (Morphine) 2 mg IVP Q6H PRN PRN Reason: Pain, moderate (4-7) Ondansetron HCl (Zofran Inj) 4 mg IVP Q6H PRN PRN Reason: Nausea/Vomiting - Labs Labs: 11/05/16 07:50 11/05/16 07:50 PT 14.0 SECONDS (9.7-12.2) H 11/03/16 12:58 INR 1.2 11/03/16 12:58 APTT 27 SECONDS (21-34) 11/03/16 12:58 Assessment and Plan - Assessment and Plan (Free Text) Assessment: Patient admitted with SBO, seen and examined, alrt, orientedx3, ambulating well. Tolerating regular diet today, no vomiting, cleared by surgery. D/W DR Gregorio, discharge plan to home today. Advised to follow up in the office in 1 week.
--- NOTE | 2016-11-05 18:00 | HP ---
HISTORY OF PRESENT ILLNESS: He is an [id number] male with history of multiple medical problems, was admitted for abdominal pain secondary to small bowel obstruction. The patient started to experience abdominal pain as well as nausea on the day of admission. The patient had prior multiple presentation with the same since he got his abdominal surgery. The patient's symptoms usually gets resolve spontaneously with intestinal decompression. Other review of system is negative. ALLERGY: No known allergy. HOME MEDICATIONS: Crestor 10 mg daily, Protonix 20 mg daily, Cozaar 25 mg daily, Plavix 75 mg daily, Pletal 50 mg twice a day, aspirin 81 mg daily. SOCIAL HISTORY: No history of smoking substance abuse. PAST MEDICAL HISTORY: Peripheral vascular disease with multiple revascularization surgery including iliofemoral bypass, type 2 diabetes mellitus, hypercholesteremia. FAMILY HISTORY: Not contributory. PHYSICAL EXAMINATION GENERAL: The patient is in bed comfortable, not in any cardiopulmonary distress at the time of his examination. He was released of abdominal pain. He is currently on IV fluid. VITAL SIGNS: Blood pressure is 126/66, temperature 97.3, respiratory rate 20 and pulse 66. HEENT: Pupils equal, reactive to light. Normal appearing mucosa of the conjunctivae, oropharyngeal, and nasal membrane mucosa. NECK: Supple. No JVD. No carotid bruit. No lymph nodes. No thyromegaly. CHEST AND LUNGS: Bilateral symmetrical expansion. Good air exchange. No rales. No rhonchi. CARDIOVASCULAR SYSTEM: PMI not localized. S1 and S2. No additional sounds. ABDOMEN: Normal active bowel sounds. No tenderness. No organomegaly. No masses. EXTREMITIES: No cyanosis, no clubbing, no edema. COMPUTING TUTOR: Alert, awake, and oriented x2. No neurological deficit could be appreciated. ASSESSMENT: 1. Small bowel obstruction. 2. Type 2 diabetes mellitus. 3. Dehydration. PLAN: Continue current IV fluid. Follow surgical recommendations, and we will do Accu-Chek with insulin coverage. Benjy Gregorio MD
--- NOTE | 2016-11-06 12:56 | CARD ---
APPROVED REPORT EKG Measurement Heart [id number] [place] [id number] <Conclusion> Normal sinus rhythm Left axis deviation Right bundle branch block Abnormal ECG
--- NOTE | 2016-11-06 14:42 | DS ---
REASON FOR ADMISSION: This is an 81-year-old male with history of type 2 diabetes mellitus on insulin, was admitted through emergency room for small-bowel obstruction. COURSE OF HOSPITALIZATION: The patient was admitted to medical floor. He was started on IV fluids and surgical consultation was called. The patient's symptoms was relieved spontaneously and as per surgery, the patient's diet was advanced to clear liquid diet. The patient tolerated well and diet was advanced to regular diet and the patient tolerated and he was discharged home after cleared by surgery to continue his preadmission medications. FINAL DIAGNOSES: Small-bowel obstruction, peripheral vascular disease, type 2 diabetes mellitus and hypercholesterolemia. [facility] MD Jg
== END 2016-11-05 17:44 | disposition home or self-care (01) | DRG 390 ==
LOC: C.ER 11:38 → C.9E 17:21 → C.3T 22:20 → C.9E 23:59 → C.5T 11-04 00:08
PROVIDERS: ADMIT Internal Medicine; ATTEND Internal Medicine
DX: K56.60 Unspecified intestinal obstruction (principal); E11.51 Type 2 diabetes mellitus with diabetic peripheral angiopathy without gangrene; E86.0 Dehydration; E78.5 Hyperlipidemia, unspecified; E78.00 Pure hypercholesterolemia, unspecified; I10 Essential (primary) hypertension; I25.10 Atherosclerotic heart disease of native coronary artery without angina pectoris; K21.9 Gastro-esophageal reflux disease without esophagitis; N40.0 Benign prostatic hyperplasia without lower urinary tract symptoms; Z79.02 Long term (current) use of antithrombotics/antiplatelets; Z79.4 Long term (current) use of insulin; Z79.82 Long term (current) use of aspirin; Z85.038 Personal history of other malignant neoplasm of large intestine; Z86.010 Personal history of colon polyps; Z87.891 Personal history of nicotine dependence; Z90.49 Acquired absence of other specified parts of digestive tract; Z95.1 Presence of aortocoronary bypass graft

== ENCOUNTER 2017-01-06 07:13 | Day surgery (SDC) | payer MEDICARE ==
[2017-01-06 07:42] VITALS: BMI 22.4
[2017-01-06] MEDS ORDERED: Propofol 10 mg/ml Inj (20 ML) ONE (09:09)
--- NOTE | 2017-01-06 09:14 | CP.SDSHP ---
Same Day Surgery H & P - History Proposed Procedure: colonoscopy, surveillance Pre-Op Diagnosis: h/o colon cancer 2005. h/o rectal cancer 2009. h/o colon polyps - Previous Medical/Surgical History Cardiac: ASHD/CAD, PVD (hyperlipidemia, ) Endocrine/Metabolic: Diabetes Misc: Anemia, Other (BPH) Previous Surgical History: Parial colon resection x 2. repair of SBO - Allergies Allergies: Allergies No Known Allergies Allergy (Verified 01/06/17 07:41) - Physical Exam Vital Signs: Vital Signs 01/06/17 01/06/17 07:50 08:00 Temperature 97.7 F Pulse Rate 58 L 58 L Respiratory 19 Rate Blood Pressure 121/57 L O2 Sat by Pulse 98 Oximetry Mental Status: Alert & Oriented x3 Neuro: WNL Heart: WNL Lungs: WNL GI: Other (well healed abdominal laparotomy scars) - Impression Impression: h/o colon and rectal cancer. h/o colon polyps Pt. Evaluated Today:Candidate for Anesthesia & Procedure: Yes - Date & Time Date: 01/06/17 Time: 09:14 Short Stay Discharge - Short Stay Discharge Admitting Diagnosis/Reason for Visit: P/H COLON CANCER / COLONIC POLYPS / RECTAL CANCER Disposition: HOME/ ROUTINE
[2017-01-06] MEDS ORDERED: Lactated Ringer's 500 ML IV SCH (09:45)
[2017-01-06 10:00] VITALS: TEMP 96.8
[2017-01-06 10:25] VITALS: O2SAT 100
[2017-01-06 11:18] VITALS: BP 115/51; PULSE 56; RESP 18
== END 2017-01-06 11:00 | disposition home or self-care (01) ==
LOC: C.ENDO 07:13
PROVIDERS: ATTEND Internal Medicine Gastroenterology
DX: Z85.038 Personal history of other malignant neoplasm of large intestine (principal); Z86.010 Personal history of colon polyps; Z85.048 Personal history of other malignant neoplasm of rectum, rectosigmoid junction, and anus; K62.1 Rectal polyp; K64.8 Other hemorrhoids
CPT/HCPCS: 45385; 82948; 88305; J2704; J7120

== ENCOUNTER 2017-02-22 22:16 | Inpatient (IN) | payer MEDICARE ==
[2017-02-22 22:16] VITALS: BMI 22.4
--- NOTE | 2017-02-22 22:55 | C.PDOC ---
History Of Present Illness Patient presents to ED with complaints of weakness, dry throat and some chest discomfort /10. Patient is speaking in full sentences and denies fever, chills , cough, nausea, vomiting, sob or any other complaints at this time. Time Seen by Provider: 02/22/17 22:55 Chief Complaint (Nursing): Chest Pain History Per: Patient History/Exam Limitations: no limitations Onset/Duration Of Symptoms: Days Current Symptoms Are (Timing): Still Present Context: Other Severity: Mild Pain Scale Rating Of: 3 Quality: Other ("Discomfort") Associated Symptoms: denies: Nausea, Dyspnea Modifying Factors: None Exacerbating Factors: None Alleviating Factors: None Recent travel outside of the [place]: No Additional History Per: Family Past Medical History Reviewed: Historical Data, Nursing Documentation, Vital Signs Vital Signs: Last Vital Signs Temp 98.3 F 02/22/17 22:38 Pulse 74 02/23/17 01:27 Resp 18 02/23/17 01:27 BP 119/58 L 02/23/17 01:27 Pulse Ox 98 02/23/17 01:27 - Medical History PMH: Anemia, Anxiety, Arthritis, Benign Prostatic Hyperplasia (removed), Bronchitis, CAD, Colonic Polyps, Diabetes, Gastritis, Gall Bladder Disease, GERD , Hiatal Hernia, HTN, Hypercholesterolemia, Malignancy (Colon), Obstructive Bowel, Pancreatitis Surgical History: Appendectomy, CABG, Cholecystectomy, Hernia Repair - [facility] Procedures ANGIOPLASTY OR ATHERECTOMY OF OTHER NON-CORONARY VESSEL(S) (04/15/06) CLOSED ENDOSCOPIC BIOPSY OF LARGE INTESTINE (01/24/14) CONTRAST AORTOGRAM (04/15/06) CONTRAST ARTERIOGRAM-LEG (04/15/06) CYSTOSCOPY NEC (11/27/14) DRAINAGE OF STOMACH WITH DRAINAGE DEVICE, VIA OPENING (08/08/16) DX ULTRASOUND NEC (11/27/14) INSERT GASTRIC TUBE NEC (12/29/14) INSERT INDWELLING CATH (07/14/14) OTH LYSIS-PERITONEAL ADHES (08/15/12) OTHER HERNIA REPAIR (08/01/14) PACKING OF NASAL REGION USING PACKING MATERIAL (04/12/15) PERCUTAN NEEDLE BIOPSY OF PROSTATE (11/27/14) REMOV URIN DRAINAGE NEC (03/04/14) REPLACE INDWELLING CATH (07/19/14) SUPRAPUBIC PROSTATECTOMY (12/18/14) Family History: States: No Known Family Hx - Social History Hx Tobacco Use: No Hx Alcohol Use: No Hx Substance Use: No - Immunization History Hx Tetanus Toxoid Vaccination: Yes Hx Influenza Vaccination: Yes Hx Pneumococcal Vaccination: Yes Review Of Systems Constitutional: Negative for: Fever, Chills ENT: Positive for: Throat Pain Cardiovascular: Positive for: Chest Pain Respiratory: Negative for: Cough, Shortness of Breath Gastrointestinal: Negative for: Nausea, Vomiting Genitourinary: Negative for: Dysuria Skin: Negative for: Rash Neurological: Positive for: Weakness Psych: Negative for: Anxiety Physical Exam - Physical Exam Appears: Non-toxic, No Acute Distress, Other (Ill appearing) Skin: Warm, Dry, No Rash Head: Normacephalic Eye(s): bilateral: Normal Inspection Oral Mucosa: Moist Neck: Supple Chest: Symmetrical Cardiovascular: Rhythm Regular (w/ frequent PVCS) Respiratory: No Rales, No Rhonchi, No Wheezing Gastrointestinal/Abdominal: Soft, No Tenderness, No Distention Back: Normal Inspection Extremity: No Tenderness, Capillary Refill (<2 seconds), 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) Extremity: Bilateral: Atraumatic, Normal Color And Temperature, Normal ROM Pulses: Left Dorsalis Pedis: Normal, Right Dorsalis Pedis: Normal Neurological/Psych: Oriented x3, Normal Speech (speaking in full sentences) Gait: With Assistance ED Course And Treatment - Laboratory Results Result Diagrams: 02/22/17 22:59 02/22/17 23:08 ECG: Interpreted By Me, Viewed By Me ECG Rhythm: Sinus Rhythm (105), R BBB, Nonspecific Changes (freq pvc's) O2 Sat by Pulse Oximetry: 98 (RA) Pulse Ox Interpretation: Normal - Radiology CXR: Interpreted by Me, Viewed By Me CXR Interpretation: Yes: Other (unchanged from 02/11/17). No: Infiltrates, Fracture, Pnemothorax Disposition Discussed With : Benjy Gregorio Comment: accepted the pt on his service and took over the care at 1:35 AM Doctor Will See Patient In The: Hospital Counseled Patient/Family Regarding: Studies Performed, Diagnosis - Disposition Disposition: HOSPITALIZED Disposition Time: 22:55 Condition: FAIR Instructions: Weakness (ED) Forms: [employer] (Swedish) - POA Present On Arrival: Poor Glycemic Control - Clinical Impression Clinical Impression: Chest discomfort, Electrolyte abnormality, Unstable gait, Hyponatremia, Generalized weakness - Scribe Statement The provider has reviewed the documentation as recorded by the Mirela Craven All medical record entries made by the Mirela were at my direction and personally dictated by me. I have reviewed the chart and agree that the record accurately reflects my personal performance of the history, physical exam, medical decision making, and the department course for this patient. I have also personally directed, reviewed, and agree with the discharge instructions and disposition. Decision To Admit - Pt Status Changed To: Hospital Disposition Of: Observation - . Bed Request Type: Regular Admitting Physician: Benjy Gregorio Patient Diagnosis: Chest discomfort, Electrolyte abnormality, Unstable gait, Hyponatremia, Generalized weakness
[2017-02-22 23:03] LABS: BASO # 0.1 K/uL (0.0-0.2); BASO % 0.8 % (0.0-2.0); EOS # 0.1 K/uL (0.0-0.7); EOS % 1.6 % (0.0-4.0); HEMATOCRIT 41.2 % (35.0-51.0); LYMPH # 1.3 K/uL (1.0-4.3); LYMPH % 16.8 % (20.0-40.0); MEAN CELL VOLUME 96.3 fL (80.0-94.0); MEAN CORPUSCULAR HEMOGLOBIN 32.7 pg (27.0-31.0); MEAN PLATELET VOLUME 8.5 fL (7.2-11.7); MONO # 0.7 K/uL (0.0-0.8); MONO % 8.9 % (0.0-10.0); NRBC % 0.3 % (0.0-2.0); RED CELL DISTRIBUTION WIDTH 14.8 % (11.5-14.5); WHITE BLOOD COUNT 7.9 K/uL (4.8-10.8)
[2017-02-22 23:21] LABS: CHLORIDE 96 mmol/L (98-107)
[2017-02-22 23:22] LABS: SODIUM 124 mmol/L (132-148)
[2017-02-22 23:23] LABS: POTASSIUM 4.4 mmol/L (3.6-5.2)
[2017-02-22 23:24] LABS: BILIRUBIN,TOTAL 0.9 mg/dL (0.2-1.3); GFR AFRICAN-AMERICAN > 60
[2017-02-22] MEDS ORDERED: Aspirin 325 mg EC Tablets PO STA (23:24)
[2017-02-22 23:25] LABS: ALB/GLOB RATIO 1.1 (1.0-2.1); ALKALINE PHOSPHATASE 69 U/L (38-126); ALT/SGPT 47 U/L (21-72); AST/SGOT 38 U/L (17-59); BLOOD UREA NITROGEN 15 mg/dL (9-20); CARBON DIOXIDE 24 mmol/L (22-30); GLUCOSE,RANDOM 150 mg/dL (75-110); TOTAL PROTEIN 4.1 g/dL (6.3-8.3)
[2017-02-23 00:50] LABS: INR 1.3
[2017-02-23] MEDS ORDERED: Sodium Chloride 0.9% 1,000 ML IV ONE ×3 (01:35→05:39)
[2017-02-23] MEDS ORDERED: Sodium Chloride 0.9% 1,000 ML ONE ×2 (01:37→03:12)
[2017-02-23 03:10] LABS: RBC URINE < 1 /hpf (0-3); URINE BILIRUBIN NEGATIVE (NEGATIVE); URINE BLOOD NEGATIVE (NEGATIVE); URINE COLOR Yellow (YELLOW); URINE GLUCOSE (UA) 1+ mg/dL (Normal); URINE KETONE NEGATIVE (NEGATIVE); URINE LEUKOCYTE ESTERASE NEG Leu/uL (Negative); URINE PROTEIN NEGATIVE (NEGATIVE); URINE UROBILINOGEN NORMAL mg/dL (0.2-1.0); WBC URINE 2 /hpf (0-5)
[2017-02-23 06:33] LABS: HEMATOCRIT 36.1 % (35.0-51.0); MEAN CELL VOLUME 96.3 fL (80.0-94.0); MEAN CORPUSCULAR HEMOGLOBIN 32.8 pg (27.0-31.0); MEAN CORPUSCULAR HGB CONC 34.1 g/dL (33.0-37.0); MEAN PLATELET VOLUME 8.3 fL (7.2-11.7); RED CELL DISTRIBUTION WIDTH 14.7 % (11.5-14.5); WHITE BLOOD COUNT 6.1 K/uL (4.8-10.8)
[2017-02-23 06:38] LABS: CHLORIDE 103 mmol/L (98-107)
[2017-02-23 06:39] LABS: POTASSIUM 3.7 mmol/L (3.6-5.2); SODIUM 129 mmol/L (132-148)
[2017-02-23 06:42] LABS: ALB/GLOB RATIO 0.8 (1.0-2.1); ALKALINE PHOSPHATASE 62 U/L (38-126); ALT/SGPT 48 U/L (21-72); AST/SGOT 23 U/L (17-59); BILIRUBIN,TOTAL 0.3 mg/dL (0.2-1.3); BLOOD UREA NITROGEN 11 mg/dL (9-20); CALCIUM 6.7 mg/dl (8.6-10.4); CARBON DIOXIDE 24 mmol/L (22-30); GFR AFRICAN-AMERICAN > 60; GLUCOSE,RANDOM 68 mg/dL (75-110); TOTAL PROTEIN 3.6 g/dL (6.3-8.3)
--- NOTE | 2017-02-23 09:48 | CP.PCM.PN ---
Subjective - Date & Time of Evaluation Date of Evaluation: 02/23/17 Time of Evaluation: 09:46 - Subjective Subjective: pt is seen and examined, follow up consult is dictated #[id number] 1. hyponatremia r/o SIADH 2. htn 3. dm 4. vit.d deficiency check urine lytes, osm cr, s.osm, tsh, uric acid, serum cortisol Objective - Vital Signs/Intake and Output Vital Signs (last 24 hours): Temp Pulse Resp BP Pulse Ox 97.4 F L 66 20 119/66 96 02/23/17 08:00 02/23/17 08:00 02/23/17 08:00 02/23/17 08:00 02/23/17 08:00 - Medications Medications: Current Medications Cilostazol (Pletal) 50 mg PO BID [facility] Clopidogrel Bisulfate (Plavix) 75 mg PO DAILY [facility] Heparin Sodium (Porcine) (Heparin) 5,000 units SC Q12 [facility] Home Med (Ferrous Sulfate [Iron]) 325 mg PO DAILY [facility] Sodium Chloride (Sodium Chloride 0.9%) 1,000 mls @ 100 mls/hr IV .Q10H ONE Stop: 02/23/17 11:39 Last Admin: 02/23/17 05:43 Dose: 100 mls/hr Insulin Aspart (Novolog) 0 unit SC ACHS [facility] PRN Reason: Protocol Insulin Glargine (Lantus) 6 unit SC Q12 [facility] Pantoprazole Sodium (Protonix Ec Tab) 20 mg PO DAILY [facility] Rosuvastatin Calcium (Crestor) 10 mg PO DAILY [facility] - Labs Labs: 02/23/17 06:27 02/23/17 06:27 PT 14.4 SECONDS (9.7-12.2) H 02/23/17 00:29 INR 1.3 02/23/17 00:29 APTT 29 SECONDS (21-34) 02/23/17 00:29
[2017-02-23] MEDS ORDERED: Home Med 1 UNIT (Ferrous Sulfate [Iron] 325 MG) PO SCH (10:00)
[2017-02-23] MEDS ORDERED: Pantoprazole 20 mg EC Tab PO SCH (10:00)
[2017-02-23] MEDS: (Novolog) Insulin Aspart, Recombinant 100 u/ml 10 ml vial SC SCH ×4 (10:07→21:06)
--- NOTE | 2017-02-23 10:31 | RAD ---
HISTORY: Chest pain. Portable study 23:12 COMPARISON: 02/11/2017, 08/08/2016 FINDINGS: LUNGS: No active pulmonary disease. Stable scarring right upper lobe. PLEURA: No significant pleural effusion identified, no pneumothorax apparent. CARDIOVASCULAR: Normal. OSSEOUS STRUCTURES: No significant abnormalities. VISUALIZED UPPER ABDOMEN: Normal. OTHER FINDINGS: None. IMPRESSION: No active disease. No significant interval change compared to the prior examination(s).
[2017-02-23] MEDS: (Lantus) Insulin Glargine, Recombinant SC SCH ×2 (10:39→21:06)
[2017-02-23] MEDS: Cilostazol 50 mg Tab UD PO SCH ×2 (11:49→17:31)
[2017-02-23 12:09] LABS: URIC ACID 2.8 mg/dL (3.5-8.5)
[2017-02-23 12:40] LABS: THYROID STIMULATING HORMONE 1.59 mIU/L (0.46-4.68)
[2017-02-23] MEDS ORDERED: Aluminum Hydroxide/Magnesium Hydroxide Susp (30 mL) PO ONE ×2 (15:00→16:00)
[2017-02-23] MEDS: Sodium Chloride 0.9% 1,000 ML IV SCH ×2 (22:13)
--- NOTE | 2017-02-24 00:45 | PN ---
FOLLOWUP RENAL CONSULTATION REQUESTING PHYSICIAN: Benjy Gregorio MD. LOCATION: The patient is located in room 557, bed B. REASON FOR RENAL FOLLOW-UP: Hyponatremia, for further evaluation. HISTORY OF PRESENT ILLNESS: Mr. Peraza is an 81 years elderly male with a past medical history significant for anemia, anxiety, arthritis, BPH, bronchitis, CAD, diabetes, hypertension, gastroesophageal reflux disease, hiatal hernia, hyperlipidemia, colon CA, multiple surgeries status post appendectomy, CABG, cholecystectomy, hernia repair who was recently admitted for generalized weakness and body aches, questionable altered mental status and found to have hyponatremia. The patient was found to have initially prerenal azotemia with urine sodium about, his serum sodium improved slightly with IV hydration. Subsequently, the patient was found to have a possible SIADH with urine osmolality more than 500 and urine sodium more than 100 with low serum uric acid level and the patient was given Tolvaptan 2 to 3 doses as an inpatient and subsequently serum sodium improved to about 130 to 131 and the patient was discharged home with sodium chloride tablets 1 g p.o. t.i.d., now the patient was admitted with chief complaints of weakness, dry throat and some chest discomfort. Denied any fever, chills, cough, nausea or vomiting during admission. The patient was also found to have hyponatremia on admission, renal consult requested for further evaluation. The patient is not in acute distress, complains of feeling weak. PHYSICAL EXAMINATION: VITAL SIGNS: This morning, blood pressure 121/84, pulse 73, respirations 18, temperature 97.4 and saturation 95%. Height 5 feet 5 inches and weight is 130 pounds. GENERAL: Mr. Peraza is an 81 years elderly male, moderately built, moderately nourished, not in acute distress. HEENT: Pupils normal, reactive to light and accommodation. Conjunctivae pink. Sclerae anicteric. Tongue is moist, trachea is midline. LUNGS: Symmetric on both sides. Bilateral breath sounds present. Clear on auscultation. CARDIOVASCULAR SYSTEM: [place] at the fifth intercostal space, midclavicular line. S1 and S2 audible. No murmur or gallop. ABDOMEN: Normal in appearance. Soft, tympanic. No guarding. No rigidity. No hepatosplenomegaly. The patient has multiple abdominal scars present from the previous surgeries. CENTRAL NERVOUS SYSTEM: The patient is alert, awake, following simple commands, oriented X2. Sensory and motor system is grossly within normal limits. Cranial nerves II through XII grossly intact. EXTREMITIES: No cyanosis, no clubbing, no edema. CURRENT MEDICATIONS: Include as follows; Crestor 10 mg at bedtime, Feosol 325 mg daily, subcu heparin 5000 q.12 hours, Lantus 6 units subcu q.12 hours, NovoLog for sliding scale, Pepcid 20 mg p.o. b.i.d., Plavix 75 mg daily, Pletal 50 mg p.o. b.i.d. and IV fluids normal saline at 100 mL/hour. LABORATORY DATA: Include as follows, as of 02/22/2017; WBC 7.9, hemoglobin 14, hematocrit is 41.2, platelets 165. Sodium is 124, potassium is 4.4, chloride 96, CO2 of 24 and anion gap is 8, BUN 15, creatinine 0.7, glucose is 150, calcium 7.0 and total bili 0.9, AST 38, ALT 47, alkaline phosphatase 69, CK-MB is 0.82, troponin 0.012, total protein 4.1, albumin is 2.2. As of 02/23/2017; proBNP is 137. Urinalysis, yellow clear, pH 6, specific gravity 1009, protein is negative, glucose 1+, ketones negative, blood negative, nitrites negative, bilirubin negative, urobilinogen is normal and leukocyte esterase negative, wbc 2, rbc less than 1. Other lab data as of 02/23/2017; WBC 6.1, hemoglobin 12.3, hematocrit is 36.1, platelets 126. Sodium is 129, potassium 3.7, chloride 103, CO2 of 24, BUN 11, creatinine 0.6, glucose is 68, calcium 6.7. Total bili 0.3, AST 23, ALT 248, alkaline phosphatase 62. Other laboratory data; total protein is 3.6 and albumin is 1.6, TSH is 1.59, serum uric acid level today is 2.8, and serum osmolality is 287. Other laboratory data as of 02/23/2017; urine osmolality is 503, urine sodium is 107, urine potassium is 57.9. ASSESSMENT AND PLAN: In summary, Mr. Peraza is 81 years old elderly male with history of hypertension, diabetes, anxiety, arthritis, gastroesophageal reflux disease, hyperlipidemia who was admitted with weakness and chest discomfort and found to have low serum sodium, on IV fluids normal saline with urine osmolality more than 500 and urine sodium 107. 1. Hyponatremia, picture consistent with SIADH, cannot rule out salt-wasting nephropathy which is less likely as the patient has urine sodium about 17 during his last admission. Plan: Repeat BMP in a.m. If serum sodium continue to improve, we will continue IV fluids, otherwise we will hold IV fluids and repeat all the urine lytes and osmolality after holding IV fluids for 12 hours. 2. Vitamin D deficiency. We will continue vitamin D 50,000 units p.o. q. weekly. 3. Hypertension. Blood pressure is stable. 4. Diabetes. Continue to monitor sugars and Accu-Cheks. Continue insulin as per Dr. Gregorio. We will follow with you. Thank you for allowing me to participate in your patient's care. Noemi Frias MD
--- NOTE | 2017-02-24 03:16 | HP ---
HISTORY OF PRESENT ILLNESS: This is an 81 years old male with history of multiple medical problems presented to emergency room with symptoms of generalized weakness and unsteadiness. The patient was evaluated in emergency room and he was found to have sodium of 124. The patient recently was discharged from the hospital after he was treated for hyponatremia. The patient admits that he has decreased oral intake because of problems with his dentures. The patient could not take an appointment with his dentist. The patient denied to have any fever or chills. No symptoms suggestive of seizure. Other review of systems is negative. ALLERGIES: NO KNOWN ALLERGY. MEDICATIONS: As per MAR. SOCIAL HISTORY: No history of smoking, EtOH or substance abuse. FAMILY HISTORY: Noncontributory. PAST MEDICAL HISTORY: 1. Peripheral vascular disease, status post multiple revascularization procedures and surgery. 2. Type 2 diabetes mellitus. 3. Hypercholesterolemia. 4. Degenerative spine disease. PHYSICAL EXAMINATION: GENERAL: The patient is in bed, comfortable, not in any cardiopulmonary distress. VITAL SIGNS: Blood pressure 119/66, temperature 97.4, respiratory rate 20 and pulse 66. HEENT: Pupils equal and reactive to light. Normal-appearing mucosa of the conjunctivae, oropharyngeal and nasal membrane mucosa. NECK: Supple. No JVD. No carotid bruit. No lymph node. No thyromegaly. CHEST AND LUNGS: Bilateral symmetrical expansion. Good air exchange. No rales, no rhonchi. CARDIOVASCULAR: PMI not localized. S1 and S2. No additional sounds. ABDOMEN: Normoactive bowel sounds. No tenderness. No organomegaly. No masses. EXTREMITIES: No cyanosis, no clubbing, no edema. CENTRAL NERVOUS SYSTEM: Alert, awake, oriented x3. No neurological deficit could be appreciated. ASSESSMENT: 1. Symptomatic hyponatremia. 2. Peripheral vascular disease. 3. Type 2 diabetes mellitus. PLAN: We will give patient IV fluid. Nephrology consult. Physical therapy. Accu-Cheeks with insulin coverage as needed. We will hold angiotensin receptive efrem. Benjy Gregorio MD
[2017-02-24] MEDS: (Novolog) Insulin Aspart, Recombinant 100 u/ml 10 ml vial SC SCH ×3 (08:01→21:22)
[2017-02-24 09:30] LABS: BLOOD UREA NITROGEN 7 mg/dL (9-20); CALCIUM 6.9 mg/dl (8.6-10.4); CARBON DIOXIDE 23 mmol/L (22-30); CHLORIDE 101 mmol/L (98-107); GFR AFRICAN-AMERICAN > 60; GLUCOSE,RANDOM 72 mg/dL (75-110); POTASSIUM 3.4 mmol/L (3.6-5.2); SODIUM 127 mmol/L (132-148)
[2017-02-24] MEDS: Cilostazol 50 mg Tab UD PO SCH ×2 (10:32→17:51)
[2017-02-24] MEDS: (Lantus) Insulin Glargine, Recombinant SC SCH (10:33)
[2017-02-24] MEDS ORDERED: Potassium Chloride 20 mEq ER Tab PO ONE (12:00)
[2017-02-24] MEDS: Sodium Chloride 0.9% 1,000 ML IV SCH (13:13)
--- NOTE | 2017-02-24 13:14 | CARD ---
APPROVED REPORT EKG Measurement Heart [id number] <Conclusion> Sinus tachycardia with premature supraventricular complexes and with occasional premature ventricular complexes Left axis deviation Right bundle branch block Abnormal ECG
[2017-02-24] MEDS ORDERED: Sodium Chloride 0.9% 1,000 ML IV SCH (16:50)
--- NOTE | 2017-02-24 19:01 | CP.PCM.PN ---
Subjective - Date & Time of Evaluation Date of Evaluation: 02/24/17 Time of Evaluation: 19:01 - Subjective Subjective: pt is seen and examined, follow up consult is dictated #[id number] increase ivf to ns 100 ml/hr, bmp in am, consider tolvaptan in am Objective - Vital Signs/Intake and Output Vital Signs (last 24 hours): Temp Pulse Resp BP Pulse Ox 97.8 F 77 20 158/60 H 95 02/24/17 15:10 02/24/17 15:10 02/24/17 15:10 02/24/17 15:10 02/24/17 15:10 Intake and Output: 02/24/17 02/25/17 18:59 06:59 Intake Total 1150 Output Total 300 Balance 850 - Medications Medications: Current Medications Cilostazol (Pletal) 50 mg PO BID [facility] Last Admin: 02/24/17 17:51 Dose: 50 mg Clopidogrel Bisulfate (Plavix) 75 mg PO DAILY [facility] Last Admin: 02/24/17 10:32 Dose: 75 mg Famotidine (Pepcid) 20 mg PO BID [facility] Last Admin: 02/24/17 17:51 Dose: 20 mg Ferrous Sulfate (Feosol) 325 mg PO DAILY [facility] Last Admin: 02/24/17 10:32 Dose: 325 mg Heparin Sodium (Porcine) (Heparin) 5,000 units SC Q12 [facility] Last Admin: 02/24/17 10:32 Dose: 5,000 units Sodium Chloride (Sodium Chloride 0.9%) 1,000 mls @ 50 mls/hr IV .Q20H [facility] Last Admin: 02/24/17 16:58 Dose: 50 mls/hr Insulin Aspart (Novolog) 0 unit SC ACHS [facility] PRN Reason: Protocol Ondansetron HCl (Zofran Inj) 4 mg IVP Q8H PRN PRN Reason: Nausea/Vomiting Last Admin: 02/24/17 16:57 Dose: 4 mg Potassium Chloride (K-Dur 20 Meq Er Tab) 20 meq PO DAILY [facility] Stop: 02/27/17 10:01 Rosuvastatin Calcium (Crestor) 10 mg PO HS [facility] - Labs Labs: 02/23/17 06:27 02/24/17 08:58 PT 14.4 SECONDS (9.7-12.2) H 02/23/17 00:29 INR 1.3 02/23/17 00:29 APTT 29 SECONDS (21-34) 02/23/17 00:29
[2017-02-25] MEDS: Sodium Chloride 0.9% 1,000 ML IV SCH ×2 (06:33→17:12)
[2017-02-25 07:45] LABS: BASO % 0.7 % (0.0-2.0); EOS # 0.1 K/uL (0.0-0.7); EOS % 2.5 % (0.0-4.0); LYMPH # 0.3 K/uL (1.0-4.3); LYMPH % 5.7 % (20.0-40.0); MEAN CELL VOLUME 95.7 fL (80.0-94.0); MEAN CORPUSCULAR HEMOGLOBIN 32.7 pg (27.0-31.0); MEAN CORPUSCULAR HGB CONC 34.2 g/dL (33.0-37.0); MEAN PLATELET VOLUME 8.4 fL (7.2-11.7); MONO # 0.5 K/uL (0.0-0.8); MONO % 9.6 % (0.0-10.0); PLATELET COUNT 150 K/uL (130-400); RED CELL DISTRIBUTION WIDTH 14.8 % (11.5-14.5); WHITE BLOOD COUNT 5.7 K/uL (4.8-10.8)
[2017-02-25] MEDS: (Novolog) Insulin Aspart, Recombinant 100 u/ml 10 ml vial SC SCH ×4 (07:51→22:50)
[2017-02-25 08:02] LABS: BLOOD UREA NITROGEN 8 mg/dL (9-20); CARBON DIOXIDE 24 mmol/L (22-30); CHLORIDE 102 mmol/L (98-107); GFR AFRICAN-AMERICAN > 60; GLUCOSE,RANDOM 84 mg/dL (75-110); POTASSIUM 3.6 mmol/L (3.6-5.2); SODIUM 128 mmol/L (132-148)
[2017-02-25 08:46] LABS: EOSINOPHIL 1 % (0-4); NEUTROPHIL 86 % (50-75); TOTAL CELLS COUNTED 100
--- NOTE | 2017-02-25 09:16 | CP.PCM.PN ---
Subjective - Date & Time of Evaluation Date of Evaluation: 02/25/17 Time of Evaluation: 09:16 - Subjective Subjective: pt is seen and examined, follow up consult is dictated #[id number] will give tolvaptan 30 mg po x1 dose today, bmp in am Objective - Vital Signs/Intake and Output Vital Signs (last 24 hours): Temp Pulse Resp BP Pulse Ox 97.8 F 62 20 123/58 L 96 02/25/17 08:03 02/25/17 08:03 02/25/17 08:03 02/25/17 08:03 02/25/17 08:03 Intake and Output: 02/25/17 02/25/17 06:59 18:59 Output Total 300 Balance -300 - Medications Medications: Current Medications Cilostazol (Pletal) 50 mg PO BID [facility] Last Admin: 02/24/17 17:51 Dose: 50 mg Clopidogrel Bisulfate (Plavix) 75 mg PO DAILY [facility] Last Admin: 02/24/17 10:32 Dose: 75 mg Famotidine (Pepcid) 20 mg PO BID [facility] Last Admin: 02/24/17 17:51 Dose: 20 mg Ferrous Sulfate (Feosol) 325 mg PO DAILY [facility] Last Admin: 02/24/17 10:32 Dose: 325 mg Heparin Sodium (Porcine) (Heparin) 5,000 units SC Q12 [facility] Last Admin: 02/24/17 21:36 Dose: 5,000 units Sodium Chloride (Sodium Chloride 0.9%) 1,000 mls @ 100 mls/hr IV .Q10H [facility] Last Admin: 02/25/17 06:33 Dose: 100 mls/hr Insulin Aspart (Novolog) 0 unit SC ACHS [facility] PRN Reason: Protocol Last Admin: 02/25/17 07:51 Dose: Not Given Ondansetron HCl (Zofran Inj) 4 mg IVP Q8H PRN PRN Reason: Nausea/Vomiting Last Admin: 02/24/17 16:57 Dose: 4 mg Potassium Chloride (K-Dur 20 Meq Er Tab) 20 meq PO DAILY [facility] Stop: 02/27/17 10:01 Rosuvastatin Calcium (Crestor) 10 mg PO HS [facility] Last Admin: 02/24/17 21:36 Dose: 10 mg - Labs Labs: 02/25/17 07:35 02/25/17 07:35 PT 14.4 SECONDS (9.7-12.2) H 02/23/17 00:29 INR 1.3 02/23/17 00:29 APTT 29 SECONDS (21-34) 02/23/17 00:29
[2017-02-25] MEDS: Potassium Chloride 20 mEq ER Tab PO SCH (09:20)
[2017-02-25] MEDS: Cilostazol 50 mg Tab UD PO SCH ×2 (09:20→17:12)
[2017-02-25] MEDS ORDERED: Ergocalciferol 50,000 Intl Units Cap PO SCH (09:30)
--- NOTE | 2017-02-25 15:21 | PN ---
DAILY PROGRESS NOTE DATE: 02/25/2017 SUBJECTIVE: The patient is seen today 02/25/2017. He is not in any cardiopulmonary distress. The patient is more awake and alert today. PHYSICAL EXAMINATION: VITAL SIGNS: Blood pressure 123/58, temperature 97.8, respiratory rate 20, and pulse 62. HEENT: Pupils equal, reactive to light. Normal-appearing mucosa of the conjunctivae, oropharynx, and nasal membrane mucosa. NECK: Supple. No JVD. No carotid bruit. No lymph node. No thyromegaly. CHEST AND LUNGS: Bilateral symmetrical expansion. Good air exchange. No rales, no rhonchi. CARDIOVASCULAR SYSTEM: PMI not localized. S1 and S2. No additional sounds. ABDOMEN: Normoactive bowel sounds. No tenderness. No organomegaly. No masses. EXTREMITIES: No cyanosis, no clubbing, no edema. RECORDS SUPERVISOR: Alert, awake, oriented x2. No neurological deficit could be appreciated. ASSESSMENT: 1. Symptomatic hyponatremia with generalized weakness and lethargy. Sodium is 128 as of today. 2. Type 2 diabetes mellitus. 3. Peripheral vascular disease. PLAN: Continue IV fluid and follow Nephrology recommendations, physical therapy and plan to discharge to subacute rehabilitation. Benjy Gregorio MD
--- NOTE | 2017-02-25 15:26 | PN ---
DATE: 02/24/2017 SUBJECTIVE: The patient was seen on 02/24/2017. He was slightly lethargic and feeling generalized weakness. PHYSICAL EXAMINATION: VITAL SIGNS: Blood pressure 138/67, temperature 98.6, respiratory rate 20 and pulse 69. HEENT: Pupils equal, reactive to light. Normal-appearing mucosa of the conjunctivae, oropharynx, and nasal membrane mucosa. NECK: Supple. No JVD. No carotid bruit. No lymph node. No thyromegaly. CHEST AND LUNGS: Bilateral symmetrical expansion. Good air exchange. No rales, no rhonchi. CARDIOVASCULAR SYSTEM: PMI not localized. S1 and S2. No additional sounds. ABDOMEN: Normoactive bowel sounds. No tenderness. No organomegaly. No masses. EXTREMITIES: No cyanosis, no clubbing, no edema. PROPELLER DRIVEN AIRPLANE MECHANIC: Alert, awake, oriented x1. No neurological deficit could be appreciated. ASSESSMENT: Symptomatic hyponatremia with possible dehydration secondary to decreased oral intake. PLAN: Continue IV fluid. Follow recommendations of textile machine operator, physical therapy and out of bed to chair. Continue Accu-Cheks with insulin coverage as needed. Plan to discharge to subacute rehabilitation. Benjy Gregorio MD
--- NOTE | 2017-02-25 15:42 | CON ---
FOLLOWUP RENAL CONSULTATION LOCATION: The patient is located in room 558, bed A. REQUESTING PHYSICIAN: Benyj Gregorio M.D. REASON FOR FOLLOWUP: Hyponatremia, for further evaluation. SUBJECTIVE: Mr. Peraza is an 81 years old elderly male with a past medical history significant for hypertension, hyponatremia, diabetes, hyperlipidemia, BPH, and coronary artery disease status post CABG, cholecystectomy, appendectomy, hernia repair, who was admitted with weakness and found to have hyponatremia. Patient is on gentle hydration and urine electrolytes consistent with possible SIADH. Patient is not in acute distress. No chest pain. No palpitation. PHYSICAL EXAMINATION GENERAL: Mr. Peraza is an 81 years old male, moderately built, moderately nourished, not in distress. VITAL SIGNS: As follows: Blood pressure 158/60, pulse 77, respirations 20, temperature 97.8, saturation 95%. Height 5 feet 5 inches and weight is 130 pounds. HEENT: Pupils normal, reactive to light and accommodation. Conjunctivae pink. Sclerae anicteric. Tongue is moist. Trachea is midline. LUNGS: Symmetric on both sides. Bilateral breath sounds present. Clear on auscultation. CARDIOVASCULAR SYSTEM: [place] at the fifth intercostal space, midclavicular line. S1 and S2 audible. No murmur or gallop. ABDOMEN: Normal in appearance, soft, tympanic. No guarding. No hepatosplenomegaly. CENTRAL NERVOUS SYSTEM: The patient is alert, awake. Following simple commands. EXTREMITIES: No cyanosis, no clubbing, no edema. CURRENT MEDICATIONS: Include as follows: Crestor 10 mg at bedtime and Feosol 325 mg daily, subcu heparin 5000 q.12 hours, 20 mEq daily, NovoLog sliding scale and Pepcid 20 mg p.o. b.i.d., Plavix 75 mg daily, Pletal 50 mg p.o. b.i.d., and IV fluids and normal saline at 50 mL per hour and Zofran 4 mg IV q.8 hours p.r.n. LABORATORY DATA: Include as follows: As of 02/24/2017; sodium 127, potassium 3.4, chloride 101, CO2 of 23, BUN 7, creatinine 0.6, glucose 135, hemoglobin A1c 6 and calcium 6.9 and cortisol 9.5. Urine osmolality 503, urine sodium is 107, urine potassium is 57.9. ASSESSMENT: In summary, Mr. Peraza is an 81 years old elderly male with a history of hypertension, diabetes, benign prostatic hypertrophy, coronary artery disease status post coronary artery bypass graft with weakness and low serum sodium, on IV fluids and normal saline. Patient was admitted with serum sodium of 124 and it increased to 127 with IV fluids. 1. Hyponatremia. Rule out syndrome of inappropriate of antidiuretic hormone versus salt-wasting nephropathy. 2. Hypertension. 3. Diabetes. 4. Rule out mild dementia. PLAN: Continue IV fluids and we will increase IV fluids, normal saline at 100 mL per hour and repeat BMP in a.m. If serum sodium does not improve, we will discontinue IV fluids and we will start him again on Tolvaptan. We will follow with you. Thank you for allowing me to participate in your patient's care. Noemi Frias MD
--- NOTE | 2017-02-26 02:29 | CON ---
FOLLOWUP RENAL CONSULTATION LOCATION: The patient is located in room 558, bed A. REQUESTING PHYSICIAN: Benjy Gregorio MD REASON FOR FOLLOWUP: Hyponatremia, for further evaluation. HISTORY OF PRESENT ILLNESS: Mr. Peraza is an 81 years old elderly male with a past medical history significant for hypertension, diabetes, anxiety, arthritis, BPH, hyperlipidemia, GERD, status post CABG, appendectomy, cholecystectomy, hernia repair who was admitted with chief complaints of generalized weakness, dry throat and chest discomfort. The patient was found to have hyponatremia and renal followup requested for further evaluation. The patient was found to have elevated urine sodium and urine osmolality and also low serum uric acid level, cannot rule out SIADH and initially started on IV fluids for possible intravascular volume depletion. No significant improvement in serum sodium. The patient feels better. No complaints. No chest pain, no palpitation, no fever, no cough, no abdominal pain. No nausea, vomiting, diarrhea. PHYSICAL EXAMINATION: VITAL SIGNS: This morning as follows; blood pressure 123/58, pulse 62, respirations 20, temperature 97.8, saturation 96%. Height 5 feet 5 inches and weight is 130 pounds. GENERAL: Mr. Peraza is an 81 years old elderly male, moderately built, moderately nourished, not in acute distress. HEENT: Pupils normal, reactive to light and accommodation. Conjunctivae pink. Sclerae are anicteric. Tongue is moist. Trachea is midline. LUNGS: Symmetric on both sides. Bilateral breath sounds present. Clear on auscultation. CARDIOVASCULAR SYSTEM: [place] at the fifth intercostal space, midclavicular line. S1 and S2 audible. No murmur or gallop. ABDOMEN: The patient has multiple scars from the previous surgeries. Abdomen is soft, tympanic. No guarding. No rigidity. No hepatosplenomegaly. No abdominal bruits. CENTRAL NERVOUS SYSTEM: The patient is alert, awake, oriented x2 to 3. Sensory and motor system is grossly within normal limits. EXTREMITIES: No cyanosis, no clubbing, no edema. CURRENT MEDICATIONS: Include as follows, Crestor 10 mg at bedtime, vitamin D 50,000 units 1 capsule q.7 days, Feosol 325 mg p.o. daily, subcu heparin 5000 q.12 hours, K-Dur 20 mEq p.o. daily, NovoLog per sliding scale, Pepcid 20 mg p.o. b.i.d., Plavix 75 mg p.o. daily, Pletal 50 mg p.o. b.i.d., IV fluids normal saline 100 mL/hour, Zofran 4 mg IV q.8 hours. LABORATORY DATA: As of 02/25/2017; WBC 5.7, hemoglobin 13.0, hematocrit is 38, platelets 150, neutrophils 86, bands 1, lymphs 4, monos 8, eosinophils 1. Sodium 128, potassium 3.6, chloride 102, CO2 of 24, BUN 8, creatinine 0.6, glucose 114, calcium is 7.0. Chest x-ray as of 02/22/2017, no active disease. No significant interval change compared to the prior examination. ASSESSMENT: In summary, Mr. Peraza is an 81 years old elderly male with history of hypertension, diabetes, hyperlipidemia, anemia, anxiety, BPH who was admitted with weakness and chest discomfort and found to have low serum sodium. 1. Hyponatremia, cannot rule out SIADH versus salt-wasting nephropathy. 2. Hypertension. 3. Diabetes. PLAN: We will give tolvaptan 30 mg p.o. x1 dose today and repeat BMP in a.m. and continue his current medications and IV fluids. We will follow with you. Thank you for allowing me to participate in your patient's care. Thank you for this interesting case. Noemi Frias MD
[2017-02-26] MEDS: Sodium Chloride 0.9% 1,000 ML IV SCH (06:13)
[2017-02-26 07:35] LABS: BLOOD UREA NITROGEN 12 mg/dL (9-20); CARBON DIOXIDE 25 mmol/L (22-30); CHLORIDE 105 mmol/L (98-107); GFR AFRICAN-AMERICAN > 60; GLUCOSE,RANDOM 114 mg/dL (75-110); SODIUM 134 mmol/L (132-148)
[2017-02-26] MEDS: (Novolog) Insulin Aspart, Recombinant 100 u/ml 10 ml vial SC SCH ×3 (07:38→17:12)
[2017-02-26 08:39] LABS: CHLORIDE URINE 92 mmol/L (32-290)
[2017-02-26] MEDS: Cilostazol 50 mg Tab UD PO SCH ×2 (09:19→17:12)
[2017-02-26] MEDS: Potassium Chloride 20 mEq ER Tab PO SCH (09:20)
--- NOTE | 2017-02-26 11:21 | CP.PCM.PN ---
Subjective - Date & Time of Evaluation Date of Evaluation: 02/26/17 Time of Evaluation: 11:21 - Subjective Subjective: pt is seen and examined, follow up consult is dictated #[id number] Objective - Vital Signs/Intake and Output Vital Signs (last 24 hours): Temp Pulse Resp BP Pulse Ox 97.7 F 91 H 18 127/68 95 02/26/17 07:34 02/26/17 07:34 02/26/17 07:34 02/26/17 07:34 02/26/17 07:34 Intake and Output: 02/26/17 02/26/17 06:59 18:59 Intake Total 1300 Balance 1300 - Medications Medications: Current Medications Cilostazol (Pletal) 50 mg PO BID COUNT INCLUDES THE [facility] Last Admin: 02/26/17 09:19 Dose: 50 mg Clopidogrel Bisulfate (Plavix) 75 mg PO DAILY COUNT INCLUDES THE [facility] Last Admin: 02/26/17 09:19 Dose: 75 mg Ergocalciferol (Drisdol 50,000 Intl Units Cap) 1 cap PO Q7D COUNT INCLUDES THE [facility] Last Admin: 02/25/17 10:13 Dose: 1 cap Famotidine (Pepcid) 20 mg PO BID COUNT INCLUDES THE [facility] Last Admin: 02/26/17 09:19 Dose: 20 mg Ferrous Sulfate (Feosol) 325 mg PO DAILY COUNT INCLUDES THE [facility] Last Admin: 02/26/17 09:19 Dose: 325 mg Heparin Sodium (Porcine) (Heparin) 5,000 units SC Q12 COUNT INCLUDES THE [facility] Last Admin: 02/26/17 09:20 Dose: 5,000 units Sodium Chloride (Sodium Chloride 0.9%) 1,000 mls @ 100 mls/hr IV .Q10H COUNT INCLUDES THE [facility] Last Admin: 02/26/17 06:13 Dose: 100 mls/hr Insulin Aspart (Novolog) 0 unit SC ACHS COUNT INCLUDES THE [facility] PRN Reason: Protocol Last Admin: 02/26/17 07:38 Dose: Not Given Ondansetron HCl (Zofran Inj) 4 mg IVP Q8H PRN PRN Reason: Nausea/Vomiting Last Admin: 02/24/17 16:57 Dose: 4 mg Potassium Chloride (K-Dur 20 Meq Er Tab) 20 meq PO DAILY COUNT INCLUDES THE [facility] Stop: 02/27/17 10:01 Last Admin: 02/26/17 09:20 Dose: 20 meq Rosuvastatin Calcium (Crestor) 10 mg PO HS COUNT INCLUDES THE [facility] Last Admin: 02/25/17 21:04 Dose: 10 mg - Labs Labs: 02/25/17 07:35 02/26/17 07:03 PT 14.4 SECONDS (9.7-12.2) H 02/23/17 00:29 INR 1.3 02/23/17 00:29 APTT 29 SECONDS (21-34) 02/23/17 00:29
--- NOTE | 2017-02-26 15:43 | CP.PCM.PN ---
Subjective - Date & Time of Evaluation Date of Evaluation: 02/26/17 Time of Evaluation: 11:30 - Subjective Subjective: Patient seen today, awake, alert, states feels better today, denies any chest pain, sob, abdominal pain, N/V/D No overnight events reported by RN NA improved- 134>128>127>[address] Newton, cleared for discharge to [facility] , continue sodium chiloride tab 1 gm TID Objective - Vital Signs/Intake and Output Vital Signs (last 24 hours): Temp Pulse Resp BP Pulse Ox 97.7 F 91 H 18 127/68 95 02/26/17 07:34 02/26/17 07:34 02/26/17 07:34 02/26/17 07:34 02/26/17 07:34 Intake and Output: 02/26/17 02/26/17 06:59 18:59 Intake Total 1300 Balance 1300 - Medications Medications: Current Medications Cilostazol (Pletal) 50 mg PO BID [facility] Last Admin: 02/26/17 09:19 Dose: 50 mg Clopidogrel Bisulfate (Plavix) 75 mg PO DAILY [facility] Last Admin: 02/26/17 09:19 Dose: 75 mg Ergocalciferol (Drisdol 50,000 Intl Units Cap) 1 cap PO Q7D [facility] Last Admin: 02/25/17 10:13 Dose: 1 cap Famotidine (Pepcid) 20 mg PO BID [facility] Last Admin: 02/26/17 09:19 Dose: 20 mg Ferrous Sulfate (Feosol) 325 mg PO DAILY [facility] Last Admin: 02/26/17 09:19 Dose: 325 mg Heparin Sodium (Porcine) (Heparin) 5,000 units SC Q12 [facility] Last Admin: 02/26/17 09:20 Dose: 5,000 units Sodium Chloride (Sodium Chloride 0.9%) 1,000 mls @ 100 mls/hr IV .Q10H [facility] Last Admin: 02/26/17 06:13 Dose: 100 mls/hr Insulin Aspart (Novolog) 0 unit SC ACHS [facility] PRN Reason: Protocol Last Admin: 02/26/17 13:09 Dose: 1 unit Ondansetron HCl (Zofran Inj) 4 mg IVP Q8H PRN PRN Reason: Nausea/Vomiting Last Admin: 02/24/17 16:57 Dose: 4 mg Potassium Chloride (K-Dur 20 Meq Er Tab) 20 meq PO DAILY [facility] Stop: 02/27/17 10:01 Last Admin: 02/26/17 09:20 Dose: 20 meq Rosuvastatin Calcium (Crestor) 10 mg PO HS [facility] Last Admin: 02/25/17 21:04 Dose: 10 mg - Labs Labs: 02/25/17 07:35 02/26/17 07:03 PT 14.4 SECONDS (9.7-12.2) H 02/23/17 00:29 INR 1.3 02/23/17 00:29 APTT 29 SECONDS (21-34) 02/23/17 00:29 Assessment and Plan - Assessment and Plan (Free Text) Assessment: A/P 81 yr old male admitted with weakness and persistant hyponatremia NA improved after samsca administration patient accepted at [facility] for rehab and pt family in agreemen t seen by Dr. montemayor
[2017-02-26 16:45] VITALS: BP 133/61; PULSE 76; RESP 20; TEMP 97.9; O2SAT 98
--- NOTE | 2017-03-01 08:07 | PN ---
FOLLOWUP RENAL CONSULTATION LOCATION: The patient is located in room 558, bed A. REQUESTING PHYSICIAN: Benjy Gregorio MD REASON FOR FOLLOWUP: Hyponatremia, for further evaluation. HISTORY OF PRESENT ILLNESS: Mr. Peraza is an 81 years elderly male with history of diabetes, hypertension, hyperlipidemia, anemia, anxiety, arthritis, BPH, multiple surgeries who was admitted with chief complaints of generalized weakness and dry throat and chest discomfort and dizziness and the patient was found to have hyponatremia on admission with serum sodium of 124 and the patient is being treated for possible SIADH and not responding. The patient was given one dose of tolvaptan and now the serum sodium went up to 134. The patient is out of bed to chair, feeling slightly better but still complains dizziness. No chest pain, no palpitation. No fever. No cough. No abdominal pain. No nausea or vomiting. No dysuria or frequency. PHYSICAL EXAMINATION: GENERAL: Mr. Peraza is 81 years old elderly male, moderately-built, moderately-nourished, not in acute distress. VITAL SIGNS: This morning as follows; blood pressure 127/68, pulse 91, respirations 18, temperature 97.7, saturation 95%. Height 5 feet 5 inches and weight is 130 pounds. HEENT: Pupils normal, reactive to light and accommodation. Conjunctivae pink. Sclerae are anicteric. Tongue is moist. Trachea is midline. LUNGS: Symmetric on both sides. Bilateral breath sounds present. Clear on auscultation. CARDIOVASCULAR SYSTEM: [place] at the fifth intercostal space, midclavicular line. S1 and S2 audible. No murmur or gallop. ABDOMEN: Normal in appearance. Soft, tympanic. No guarding. No rigidity. No hepatosplenomegaly. CENTRAL NERVOUS SYSTEM: The patient is alert, awake, oriented x2 to 3. Sensory motor system is within normal limits. EXTREMITIES: No cyanosis, no clubbing, no edema. CURRENT MEDICATIONS: Include as follows; sodium chloride tablet 1 g p.o. t.i.d., Crestor 10 mg at bedtime, NovoLog for sliding scale, Feosol 325 mg p.o. daily, Pepcid 20 mg p.o. b.i.d., a year ago Calciferol 50,000 units 1 capsule p.o. q. weekly, Plavix 75 mg daily, Pletal 50 mg p.o. b.i.d. Also the patient received tetanus toxoid vaccine and pneumococcal vaccine. LABORATORY DATA: His laboratory data include as follows as of 02/26/2017; sodium is 134, potassium is 4, chloride 105, CO2 of 25, BUN 12, creatinine 0.7, glucose 138, calcium is 7.0. ASSESSMENT: In summary, Mr. Peraza is an 81 years old elderly male with hypertension, diabetes, hyperlipidemia, anemia, anxiety and gastroesophageal reflux disease with generalized weakness and dizziness and chest discomfort with serum sodium on admission was 134. 1. Hyponatremia, most likely secondary to SIADH, cannot rule out salt-wasting nephropathy. The patient did not respond well to the IV fluids with normal saline, I doubt salt-wasting nephropathy. The patient responded to tolvaptan 30 mg p.o. x1 dose. His serum sodium improved from 128 on 02/25/2017 now to 134. PLAN: Continue sodium chloride tablet 1 g three times a day and also high-protein diet and regular diet. Case discussed with Dr. Gregorio in rounds for possible discharge to subacute rehab today. Thank you for allowing me to participate in your patient's care. Follow BMP in the [facility]. Noemi Frias MD
--- NOTE | 2017-03-01 09:42 | DS ---
REASON FOR ADMISSION: This is an 81-year-old male with history of multiple medical problems who was admitted for generalized weakness and symptomatic hyponatremia. COURSE OF HOSPITALIZATION: Patient was admitted to Medical Floor and he was also found to be dehydrated. Patient was started on normal saline, and sodium went up in a very small percentage. Patient had a nephrology [facility] consultant, Dr. Frias, and he was given tolvaptan, and sodium came up to 132. Patient was discharged in a stable condition to follow with his primary care physician as well as mechanotherapist. Patient was discharged to [facility]. FINAL DIAGNOSES: 1. Symptomatic hyponatremia. 2. Peripheral vascular disease. 3. Type 2 diabetes mellitus. [facility] MD gJ
== END 2017-02-26 17:58 | DRG 645 ==
LOC: C.ER 22:16 → C.9E 02-23 01:32 → C.5S 02-23 07:12
PROVIDERS: ADMIT Internal Medicine; ATTEND Internal Medicine
DX: E22.2 Syndrome of inappropriate secretion of antidiuretic hormone (principal); E11.51 Type 2 diabetes mellitus with diabetic peripheral angiopathy without gangrene; E86.0 Dehydration; D64.9 Anemia, unspecified; E55.9 Vitamin D deficiency, unspecified; E78.00 Pure hypercholesterolemia, unspecified; F41.9 Anxiety disorder, unspecified; I10 Essential (primary) hypertension; I25.10 Atherosclerotic heart disease of native coronary artery without angina pectoris; K21.9 Gastro-esophageal reflux disease without esophagitis; N40.0 Benign prostatic hyperplasia without lower urinary tract symptoms; Z85.038 Personal history of other malignant neoplasm of large intestine; Z86.010 Personal history of colon polyps; Z95.1 Presence of aortocoronary bypass graft

== ENCOUNTER 2017-08-09 06:21 | Emergency (ER) | payer MEDICARE ==
[2017-08-09 06:21] VITALS: BMI 22.4
[2017-08-09 06:39] VITALS: TEMP 97.8
[2017-08-09 07:14] LABS: BASO % 0.6 % (0.0-2.0); EOS % 0.5 % (0.0-4.0); HEMOGLOBIN 14.3 g/dL (12.0-18.0); LYMPH # 0.3 K/uL (1.0-4.3); LYMPH % 4.3 % (20.0-40.0); MEAN CELL VOLUME 98.9 fL (80.0-94.0); MEAN CORPUSCULAR HEMOGLOBIN 34.6 pg (27.0-31.0); MEAN PLATELET VOLUME 9.1 fL (7.2-11.7); MONO # 0.3 K/uL (0.0-0.8); MONO % 5.7 % (0.0-10.0); NEUT # 5.2 K/uL (1.8-7.0); NEUT % 88.9 % (50.0-75.0); PLATELET COUNT 131 K/uL (130-400); RBC 4.14 Mil/uL (4.40-5.90); RED CELL DISTRIBUTION WIDTH 15.8 % (11.5-14.5); WHITE BLOOD COUNT 5.8 K/uL (4.8-10.8)
[2017-08-09 07:20] LABS: ALB/GLOB RATIO 0.8 (1.0-2.1); CALCIUM 7.4 mg/dl (8.6-10.4); GFR AFRICAN-AMERICAN > 60; GFR NON-AFRICAN AMERICAN > 60
[2017-08-09 07:28] LABS: INR 1.1; PROTHROMBIN TIME 12.6 SECONDS (9.7-12.2)
--- NOTE | 2017-08-09 07:45 | CT ---
EXAM: CT Head Without Intravenous Contrast CLINICAL HISTORY: 82 years old, male; Injury or trauma; Fall; Initial encounter; Swelling (edema); Additional info: Head trauma S/P fall TECHNIQUE: Axial computed tomography images of the head/brain without intravenous contrast. All CT scans at this facility use one or more dose reduction techniques, viz.: automated exposure control; ma/kV adjustment per patient size (including targeted exams where dose is matched to indication; i.e. head); or iterative reconstruction technique. Coronal and sagittal reformatted images were created and reviewed. COMPARISON: No relevant prior studies available. FINDINGS: Brain: Moderate atrophy. No intracranial hemorrhage. No mass. Several scattered foci of decreased attenuation within periventricular/subcortical white matter. No edema. Ventricles: No hydrocephalus. Bones/joints: No calvarial fracture. Soft tissues: Frontal soft tissue swelling. Vasculature: Atherosclerotic disease of intracranial arteries. Mastoid air cells: Partial opacification and small defect of RIGHT mastoid. IMPRESSION: 1. No intracranial hemorrhage. 2. Nonspecific white matter changes. 3. Mastoid disease. 4. See facial bone CT report for additional details. 5. Incidental/non-acute findings are described above.
[2017-08-09 07:46] LABS: ALT/SGPT 54 U/L (21-72); AST/SGOT 49 U/L (17-59); BLOOD UREA NITROGEN 12 mg/dL (9-20)
[2017-08-09] MEDS ORDERED: Epinephrine /Lidocaine HCL 1:100,000/2% 30 ml INJ ONE (07:48)
--- NOTE | 2017-08-09 07:51 | CT ---
EXAM: CT Maxillofacial Without Intravenous Contrast CLINICAL HISTORY: 82 years old, male; Injury or trauma; Fall; Initial encounter; Swelling; Cheek bone and forehead; Bilateral; Additional info: Head trauma S/P fall TECHNIQUE: Axial computed tomography images of the face without intravenous contrast. All CT scans at this facility use one or more dose reduction techniques, viz.: automated exposure control; ma/kV adjustment per patient size (including targeted exams where dose is matched to indication; i.e. head); or iterative reconstruction technique. Coronal and sagittal reformatted images were created and reviewed. COMPARISON: No relevant prior studies available. FINDINGS: Bones/joints: Fracture RIGHT nasal bone. Soft tissues: RIGHT maxillary, nasal soft tissue swelling. Orbits: Unremarkable as visualized. Sinuses: Scattered minimal to mild mucosal thickening. No air-fluid levels. Mastoid air cells: Partial opacification and small defect of RIGHT mastoid. Dental: Dental caries. IMPRESSION: 1. Nasal fracture. 2. Mastoid disease. 3. Incidental/non-acute findings are described above.
--- NOTE | 2017-08-09 07:54 | CT ---
EXAM: CT Cervical Spine Without Intravenous Contrast CLINICAL HISTORY: 82 years old, male; Injury or trauma; Fall; Initial encounter; Swelling; Additional info: Head trauma S/P fall TECHNIQUE: Axial computed tomography images of the cervical spine without intravenous contrast. All CT scans at this facility use one or more dose reduction techniques, viz.: automated exposure control; ma/kV adjustment per patient size (including targeted exams where dose is matched to indication; i.e. head); or iterative reconstruction technique. Coronal and sagittal reformatted images were created and reviewed. COMPARISON: No relevant prior studies available. FINDINGS: Vertebrae: No acute fracture. Discs/spinal canal/neural foramina: Mild disc herniations within mid and lower cervical spine, suboptimally evaluated. No significant spinal stenosis. Soft tissues: Unremarkable. Vasculature: Atherosclerotic disease of visualized arteries. Mastoid air cells: Partial opacification and small defect of RIGHT mastoid. Lung apices: Unremarkable as visualized. IMPRESSION: 1. No fracture. 2. Mastoid disease. 3. Incidental/non-acute findings are described above.
[2017-08-09 07:59] LABS: LIPASE 160 U/L (23-300)
[2017-08-09 08:11] LABS: LYMPHOCYTE 5 % (20-40); MONOCYTE 4 % (0-10); NEUTROPHIL 91 % (50-75); PLATELET ESTIMATE NORMAL (NORMAL); TOTAL CELLS COUNTED 100
[2017-08-09 08:12] LABS: ANISOCYTOSIS SLIGHT
--- NOTE | 2017-08-09 08:34 | C.PDOC ---
History Of Present Illness 82-year-old male, presents to the emergency department with complaints of mechanical fall this morning. Patient states he was on his way to move his car due to street cleaning, but tripped and fell, sustaining laceration to his nose and face. Patient denies loss of consciousness, nausea/vomiting, dizziness, back /neck pain or any other associated symptoms. No other complaints at this time. PMD Benjy Gregorio MD. - HPI Time Seen by Provider: 08/09/17 07:11 Chief Complaint (Nursing): Trauma History Per: Patient History/Exam Limitations: no limitations Past Medical History Reviewed: Historical Data, Nursing Documentation, Vital Signs Vital Signs: Last Vital Signs Temp 97.8 F 08/09/17 06:39 Pulse 77 08/09/17 08:50 Resp 20 08/09/17 08:50 BP 148/75 08/09/17 08:50 Pulse Ox 96 08/09/17 17:51 - Medical History PMH: Anemia, Anxiety, Arthritis, Benign Prostatic Hyperplasia (removed), Bronchitis, CAD, Colonic Polyps, Diabetes, Gastritis, Gall Bladder Disease, GERD , Hiatal Hernia, HTN, Hypercholesterolemia, Malignancy (Colon), Obstructive Bowel, Pancreatitis Surgical History: Appendectomy, CABG, Cholecystectomy, Hernia Repair - [facility] Procedures ANGIOPLASTY OR ATHERECTOMY OF OTHER NON-CORONARY VESSEL(S) (04/15/06) CLOSED ENDOSCOPIC BIOPSY OF LARGE INTESTINE (01/24/14) CONTRAST AORTOGRAM (04/15/06) CONTRAST ARTERIOGRAM-LEG (04/15/06) CYSTOSCOPY NEC (11/27/14) DRAINAGE OF STOMACH WITH DRAINAGE DEVICE, VIA OPENING (08/08/16) DX ULTRASOUND NEC (11/27/14) INSERT GASTRIC TUBE NEC (12/29/14) INSERT INDWELLING CATH (07/14/14) OTH LYSIS-PERITONEAL ADHES (08/15/12) OTHER HERNIA REPAIR (08/01/14) PACKING OF NASAL REGION USING PACKING MATERIAL (04/12/15) PERCUTAN NEEDLE BIOPSY OF PROSTATE (11/27/14) REMOV URIN DRAINAGE NEC (03/04/14) REPLACE INDWELLING CATH (07/19/14) SUPRAPUBIC PROSTATECTOMY (12/18/14) Family History: States: No Known Family Hx - Social History Hx Tobacco Use: No Hx Alcohol Use: No Hx Substance Use: No (quit drinking 20 years ago) - Immunization History Hx Tetanus Toxoid Vaccination: Yes Hx Influenza Vaccination: Yes Hx Pneumococcal Vaccination: Yes Review Of Systems Constitutional: Negative for: Weakness Cardiovascular: Negative for: Chest Pain Respiratory: Negative for: Shortness of Breath Gastrointestinal: Negative for: Vomiting Neurological: Positive for: Other (No LOC). Negative for: Weakness, Numbness, Headache, Dizziness Physical Exam - Physical Exam Appears: Non-toxic, No Acute Distress Skin: Warm, Dry, No Rash, Other (multiple skin tears to right arm) Head: Laceration (5cm, forehead) Eye(s): bilateral: PERRL, EOMI, Abnormal Pupil Nose: No Septal Hematoma, Other (skin tear, anterior nose. (+) swelling) Oral Mucosa: Moist Lips: Swelling Teeth: Normal Dentition Neck: Normal ROM, Trachea Midline, No Step Off Deformity, Supple Chest: Symmetrical Cardiovascular: Rhythm Regular, No Murmur Respiratory: Normal Breath Sounds, No Accessory Muscle Use Extremity: Normal ROM, No Deformity, No Swelling Neurological/Psych: Oriented x3, Normal Speech ED Course And Treatment - Laboratory Results Result Diagrams: 08/09/17 06:45 08/09/17 06:45 ECG Rhythm: R BBB Interpretation Of ECG: Left anterior fascicular block. No ST/T wave abnormalities. Rate From EC O2 Sat by Pulse Oximetry: 96 (RA) Pulse Ox Interpretation: Normal Laceration - Laceration Repair mid forehead Wound Length (In cm): 5cm Anesthesia: Lidocaine 1%, With Epi Wound Examination: Irrigated With Saline Wound Closure: Suture (10 4-0 nylon suture and 1 4-O vicryl subcutaneous suture placed, td is utd ) Disposition Counseled Patient/Family Regarding: Studies Performed, Diagnosis, Need For Followup, Rx Given - Disposition Referrals: Benjy Gregorio MD [Staff Provider] - Issa Vera MD [Staff Provider] - Disposition: HOME/ ROUTINE Disposition Time: 09:20 Condition: STABLE Additional Instructions: follow up with your doctor in 2 days wound check in 2 days keep wound dry for 24 hours warm water and soap to clean thereafter apply bacitracin twice daily suture removal in 5 days apply ice to injured area call your doctor for appointment return to ER if symptoms worsens or progress follow up with Dr. Vera for nasal bone fracture Prescriptions: traMADol [Ultram] 50 mg PO TID PRN #12 tab PRN Reason: Pain, Moderate (4-7) Instructions: Taking Care of Bruises, Laceration Repair, Preventing Falls in the Older Adult, Wound Care (DC), Minor Head Injury, Nose Fracture (DC) Forms: Gen Discharge Inst Haitian, [facility] (Haitian) - Clinical Impression Clinical Impression: Head injury, Laceration - injury, Fall, Nasal bone fracture - Scribe Statement The provider has reviewed the documentation as recorded by the Scribe (Polly Stokes) All medical record entries made by the Scribe were at my direction and personally dictated by me. I have reviewed the chart and agree that the record accurately reflects my personal performance of the history, physical exam, medical decision making, and the department course for this patient. I have also personally directed, reviewed, and agree with the discharge instructions and disposition.
[2017-08-09] MEDS ORDERED: Bacitracin 500 Units/gm Oint Foilpak UD ONE (08:47)
[2017-08-09] MEDS ORDERED: Bacitracin 500 Units/gm Oint Foilpak UD TOP ONE (08:49)
[2017-08-09 08:51] VITALS: BP 148/75; PULSE 77; RESP 20
[2017-08-09 09:23] VITALS: O2SAT 96
--- NOTE | 2017-08-10 15:18 | CARD ---
APPROVED REPORT EKG Measurement Heart [id number] ID [id number] <Conclusion> Sinus rhythm with occasional premature ventricular complexes Right bundle branch block Left anterior fascicular block Bifascicular block Abnormal ECG
== END 2017-08-09 10:00 | disposition home or self-care (01) ==
LOC: C.ER 06:21
DX: S01.81XA Laceration without foreign body of other part of head, initial encounter (principal); S02.2XXA Fracture of nasal bones, initial encounter for closed fracture; W01.0XXA Fall on same level from slipping, tripping and stumbling without subsequent striking against object, initial encounter; Y92.89 Other specified places as the place of occurrence of the external cause

== ENCOUNTER 2017-08-15 17:22 | Emergency (ER) | payer MEDICARE ==
[2017-08-15 17:23] VITALS: BMI 22.4
[2017-08-15 17:28] VITALS: BP 107/61; PULSE 97; RESP 20; TEMP 98.8; O2SAT 100
--- NOTE | 2017-08-15 17:30 | C.PDOC ---
History Of Present Illness 82yo male comes in for suture removal. Patient had sutures place to mid forehead s/p mechanical slip and fall 08/09/17. Patient denies any new symptoms. Time Seen by Provider: 08/15/17 17:27 Chief Complaint (Nursing): Suture/Staple Removal History Per: Patient History/Exam Limitations: no limitations Past Medical History Reviewed: Historical Data, Nursing Documentation, Vital Signs Vital Signs: Last Vital Signs Temp 98.8 F 08/15/17 17:27 Pulse 97 H 08/15/17 17:27 Resp 20 08/15/17 17:27 BP 107/61 08/15/17 17:27 Pulse Ox 100 08/15/17 17:27 - Medical History PMH: Anemia, Anxiety, Arthritis, Benign Prostatic Hyperplasia (removed), Bronchitis, CAD, Colonic Polyps, Diabetes, Gastritis, Gall Bladder Disease, GERD , Hiatal Hernia, HTN, Hypercholesterolemia, Malignancy (Colon), Obstructive Bowel, Pancreatitis Surgical History: Appendectomy, CABG, Cholecystectomy, Hernia Repair - [facility] Procedures ANGIOPLASTY OR ATHERECTOMY OF OTHER NON-CORONARY VESSEL(S) (04/15/06) CLOSED ENDOSCOPIC BIOPSY OF LARGE INTESTINE (01/24/14) CONTRAST AORTOGRAM (04/15/06) CONTRAST ARTERIOGRAM-LEG (04/15/06) CYSTOSCOPY NEC (11/27/14) DRAINAGE OF STOMACH WITH DRAINAGE DEVICE, VIA OPENING (08/08/16) DX ULTRASOUND NEC (11/27/14) INSERT GASTRIC TUBE NEC (12/29/14) INSERT INDWELLING CATH (07/14/14) OTH LYSIS-PERITONEAL ADHES (08/15/12) OTHER HERNIA REPAIR (08/01/14) PACKING OF NASAL REGION USING PACKING MATERIAL (04/12/15) PERCUTAN NEEDLE BIOPSY OF PROSTATE (11/27/14) REMOV URIN DRAINAGE NEC (03/04/14) REPLACE INDWELLING CATH (07/19/14) SUPRAPUBIC PROSTATECTOMY (12/18/14) Family History: States: No Known Family Hx - Social History Hx Tobacco Use: No Hx Alcohol Use: No Hx Substance Use: No (quit drinking 20 years ago) - Immunization History Hx Tetanus Toxoid Vaccination: Yes Hx Influenza Vaccination: Yes Hx Pneumococcal Vaccination: Yes Review Of Systems Constitutional: Negative for: Fever Gastrointestinal: Negative for: Vomiting Neurological: Negative for: Weakness, Numbness Physical Exam - Physical Exam Appears: Non-toxic, No Acute Distress Skin: Normal Color, Warm, Dry, Other (Healed sutured wound to mid forehead) Head: Normacephalic Eye(s): bilateral: Normal Inspection, PERRL, EOMI Oral Mucosa: Moist Neck: Normal ROM, No Midline Cervical Tenderness, No Paracervical Tenderness, Supple Neurological/Psych: Normal Motor, Normal Sensation ED Course And Treatment O2 Sat by Pulse Oximetry: 100 (on RA) Pulse Ox Interpretation: Normal Medical Decision Making Medical Decision Making: Sutures were removed by me with success. Disposition - Disposition Disposition: HOME/ ROUTINE Disposition Time: 18:00 Condition: GOOD Instructions: Stitches Removal Forms: [employer] (Portuguese) - Clinical Impression Clinical Impression: Removal of suture - Scribe Statement The provider has reviewed the documentation as recorded by the Scribe (Polly Guillermo) All medical record entries made by the Scribe were at my direction and personally dictated by me. I have reviewed the chart and agree that the record accurately reflects my personal performance of the history, physical exam, medical decision making, and the department course for this patient. I have also personally directed, reviewed, and agree with the discharge instructions and disposition.
[2017-08-15] MEDS ORDERED: Bacitracin 500 Units/gm Oint Foilpak UD TOP ONE (17:38)
[2017-08-15] MEDS ORDERED: Bacitracin 500 Units/gm Oint Foilpak UD ONE (17:43)
== END 2017-08-15 17:52 | disposition home or self-care (01) ==
LOC: C.ER 17:22
DX: Z48.02 Encounter for removal of sutures (principal); E11.9 Type 2 diabetes mellitus without complications; E78.00 Pure hypercholesterolemia, unspecified; I10 Essential (primary) hypertension; I25.10 Atherosclerotic heart disease of native coronary artery without angina pectoris; N40.0 Benign prostatic hyperplasia without lower urinary tract symptoms